=== PATIENT | male | born 2000 | race Caucasian/White ===

== ENCOUNTER 2022-01-01 14:23 | Inpatient (IN) ==
[2022-01-01] MEDS ORDERED: SODIUM CHLORIDE 0.9% 1000ML 1,000 ML IV ONE (14:47)
[2022-01-01] MEDS ORDERED: IBUPROFEN 200 MG TAB PO STA (14:47)
--- NOTE | 2022-01-01 14:53 | Emergency Department Note ---
History of Present Illness General Chief complaint: Fever Stated complaint: FEVER/NO ENERGY/BODY ACHES/CAN'T EAT Time Seen by Provider: 01/01/22 14:37 History of Present Illness This 21-year-old male presents today for evaluation of a multitude of cold symptoms. He states it started on Sunday. He has had no energy. He feels as though there is loss of appetite and some discomfort with swallowing. He thinks he had a fever at home. He denies any ear pain. There is some nasal congestion. No cough. He has had some chills and sweats. No vomiting or diarrhea. He does get some nausea when attempting to eat. No known ill contacts. He has had no treatment. He did take an at home COVID test on and Sunday. Both were negative. He states his vaccinations are up-to-date. Home Medications Medication Instructions Recorded Confirmed Type No Known Home Medications 01/01/22 01/01/22 History Allergies Allergy/AdvReac Type Severity Reaction Status Date / Time No Known Allergies Allergy Unverified 01/01/22 15:51 Past Med/Surg History Medical History No pertinent past medical history Surgical History H/O wisdom tooth extraction Hx of eye surgery Family History Mother Anemia Social History Smoking Status: Never smoker Hx Alcohol Use: Yes Alcohol type: beer Hx Substance Use: No Communication Ability: Effective Hearing Ability: Normal Enterprise Integration Developer Required: No Beliefs That Will Affect Care: None marital status: Single Current Living Situation: Alone Current Living Situation Comment: roommates current occupational status: student Other Information That Helps Us Care for You: No Feels Safe at Home: Yes Safety Concerns: Feels Safe At This Time Assistive Devices: None Review of Systems A total of 10 systems reviewed and were otherwise negative Physical Exam Vital Signs Vital Signs - 24 hr 01/01/22 14:26 01/01/22 14:40 01/01/22 16:23 Temperature 37.3 C Temperature Source Temporal Artery Scan Pulse Rate 100 H Pulse Rate [Apical] 85 83 Respiratory Rate 18 20 20 Respiratory Effort / Characteristics Non-Labored Non-Labored Spontaneous Non-Labored Spontaneous Respiratory Depth Normal Normal Normal Respiratory Pattern Regular Regular Blood Pressure 118/68 Blood Pressure [Right Arm] 135/86 136/67 Blood Pressure Mean 84 Blood Pressure Mean [Right Arm] 102 90 Blood Pressure Position [Right Arm] Sitting Sitting Pulse Oximetry 100 98 97 Oxygen Delivery Method Room Air Room Air Sepsis Recent Fever Within 48 Hours No Sepsis New/Unexplained Change in Mental Status No Sepsis Action Taken by Nursing No Action Required General: Well-developed, well-nourished, young white male, in no acute distress. Sitting on a bed. Alert and oriented. Conversive. Skin: Warm and dry with fair turgor. No rashes or lesions. No ecchymosis or erythema. The patient is not diaphoretic. No abrasions. Appears mildly pale. HEENT: Normocephalic atraumatic. Eyes PERRLA, EOMI. No conjunctiva or scleral injection. Ears TMs intact bilaterally with good light reflexes. No erythema or bulging. No hemotympanum. Canals are patent. Nares patent bilaterally without turbinate enlargement. Clear nasal drainage present bilaterally. No epistaxis. Oropharynx with erythema and exudate on the tonsils. Uvula midline, oral mucosa moist. No lesions present. Postnasal drip is visible. Lymphatics are palpated with right anterior chain enlargement but no tenderness. No posterior chain enlargement or tenderness. Heart: Heart tachycardic with regular rhythm. No MGR. Peripheral pulses are 2+. Lungs: Lungs are clear to auscultation. No crackles rhonchi or wheezing. Good air movement. The patient is able to take a deep breath. Abdomen: Abdomen was inspected, auscultated, and palpated. Bowel sounds present x 4. Soft, nontender to palpation. No hepato-splenomegaly. No masses noted. No rebound. Musculoskeletal: Gross motor function of the upper and lower extremities is intact and unremarkable. No nuchal rigidity. Neurologic: Gross sensation is intact across the upper and lower extremities by soft touch. Rectal: No external hemorrhoids visible. Soft yellow stool present in rectal vault. No internal hemorrhoids are noted. No internal masses. Good sphincter tone. Stool is guaiac negative. Course Administered Medications Acetaminophen (Acetaminophen 325 Mg Tab) 650 mg PO Q4H PRN PRN Reason: temp/pain Stop: 01/31/22 23:24 Last Admin: 01/02/22 07:57 Dose: 650 mg Documented By: Admin: 01/02/22 04:02 Dose: 650 mg Documented By: Admin: 01/01/22 23:27 Dose: 650 mg Documented By: DEANGELO Amoxicillin (Amoxicillin 500 Mg Cap) 500 mg PO TID ASHLEY Stop: 01/11/22 20:59 Last Admin: 01/03/22 14:14 Dose: 500 mg Documented By: ALISIA Co-signed By: DENNIS Admin: 01/03/22 08:50 Dose: 500 mg Documented By: Admin: 01/02/22 20:08 Dose: 500 mg Documented By: Admin: 01/02/22 13:01 Dose: 500 mg Documented By: Admin: 01/02/22 07:58 Dose: 500 mg Documented By: Admin: 01/01/22 22:04 Dose: 500 mg Documented By: DEANGELO Ascorbic Acid (Ascorbic Acid 500 Mg Tab) 1,000 mg PO QAM [facility] Stop: 02/01/22 13:29 Last Admin: 01/03/22 08:50 Dose: 1,000 mg Documented By: Admin: 01/02/22 15:01 Dose: 1,000 mg Documented By: OSVALDO Ferrous Sulfate (Ferrous Sulfate 325 Mg Tab) 325 mg PO QAM [facility] Stop: 02/01/22 13:29 Last Admin: 01/03/22 08:50 Dose: 325 mg Documented By: Admin: 01/02/22 15:01 Dose: 325 mg Documented By: OSVALDO Discontinued Medications Acetaminophen (Acetaminophen 325 Mg Tab) Confirm Administered Dose 650 mg .ROUTE .STK-MED ONE Stop: 01/01/22 23:28 Last Admin: 01/01/22 23:43 Dose: Not Given Documented By: DEANGELO Diphenhydramine HCl (Diphenhydramine Capsule 25 Mg Cap) 50 mg PO NOW ONE Stop: 01/02/22 02:10 Last Admin: 01/02/22 02:42 Dose: 50 mg Documented By: DEANGELO Sodium Chloride (Nss 1000ml) 1,000 mls @ 999 mls/hr IV .Q1H1M ONE Stop: 01/01/22 15:47 Last Infusion: 01/01/22 16:02 Dose: 0 mls/hr Documented By: Admin: 01/01/22 14:55 Dose: 999 mls/hr Documented By: ALLIE Pantoprazole Sodium 40 mg/ (Syringe) 10 mls @ 5 mls/min IV BID ASHLEY Stop: 01/31/22 20:59 Last Admin: 01/02/22 07:58 Dose: 5 mls/min Documented By: Admin: 01/01/22 20:27 Dose: 5 mls/min Documented By: DEANGELO Pantoprazole Sodium 40 mg/ (Syringe) 10 mls @ 5 mls/min IV NOW ONE Stop: 01/01/22 16:51 Last Admin: 01/01/22 18:23 Dose: 5 mls/min Documented By: STEPHANE Sodium Chloride (Nss) 250 mls @ 15 mls/hr IV .[id number] PRN PRN Reason: For Transfusion Stop: 01/02/22 12:10 Last Infusion: 01/02/22 07:59 Dose: 0 mls/hr Documented By: Admin: 01/02/22 07:59 Dose: 15 mls/hr Documented By: OSVALDO Ibuprofen (Ibuprofen 200 Mg Tab) 600 mg PO NOW STA Stop: 01/01/22 14:48 Last Admin: 01/01/22 14:55 Dose: 600 mg Documented By: ALLIE Ondansetron HCl (Ondansetron Inj 2 Mg/Ml 2 Ml Vial) Confirm Administered Dose 4 mg .ROUTE .STK-MED ONE Stop: 01/02/22 04:01 Last Admin: 01/02/22 05:38 Dose: Not Given Documented By: DEANGELO Ondansetron HCl (Ondansetron Inj 2 Mg/Ml 2 Ml Vial) 4 mg IV NOW STA Stop: 01/02/22 05:19 Last Admin: 01/02/22 04:05 Dose: 4 mg Documented By: DEANGELO Ondansetron HCl (Ondansetron Inj 2 Mg/Ml 2 Ml Vial) 4 mg IV NOW STA Stop: 01/02/22 16:40 Last Admin: 01/02/22 18:29 Dose: Not Given Documented By: OSVALDO Ondansetron HCl (Ondansetron Inj 2 Mg/Ml 2 Ml Vial) Confirm Administered Dose 4 mg .ROUTE .STK-MED ONE Stop: 01/02/22 16:32 Last Admin: 01/02/22 16:35 Dose: 4 mg Documented By: OSVALDO Medical Decision Making Differential Diagnosis Strep pharyngitis, COVID-19 infection, other viral infection, mononucleosis, pneumonia, GI bleed, anemia, leukemia, other cancer Medical Records Attestation: I reviewed the patient's medical records. Home Medications Current Medication List: was personally reviewed by me Laboratory Data CBC, Monospot, strep swab, and COVID nasal swab were obtained. Iron panel and CMP were also obtained. CBC showed WBC is low at 3.15. RBC is low at 4.07. H&H are low at 5.7 and 22.2. MCV also low at 54.5. Hypochromasia, microcytosis, and anisocytosis are present. [facility] is negative. Strep is positive. Chemistry panel shows sodium 133, chloride 92, anion gap of 16. BUN and creatinine are normal. Iron is low at 10 Transferrin percent is 3. Unsaturated IBC is high at 367. Total bilirubin is 1.4. Due to his low H&H, type and cross were obtained. Result diagrams: 01/03/22 06:20 01/03/22 06:20 Lab Results 01/01/22 01/01/22 01/01/22 Range/Units 15:02 15:02 15:02 WBC 3.15 L (4.8-10.8) K/ul RBC 4.07 L (4.63-6.08) M/uL Hgb 5.7 L* (14.0-18.0) g/dl Hct 22.2 L (40.1-51.0) % MCV 54.5 L (80.0-100.0) fL MCH 14.0 L (25.0-34.0) pg MCHC 25.7 L (32.0-36.0) g/dL RDW Std Deviation 40.3 (36.4-46.3) fL RDW Coeff of Mily 21.9 H (11.5-14.5) % Plt Count 155 (130-400) K/uL Immature Gran % (Auto) 0.3 % Neut % (Auto) 55.6 % Lymph % (Auto) 29.2 % [facility] % (Auto) 14.9 % Eos % (Auto) 0.0 % Baso % (Auto) 0.0 % Neut # (Auto) 1.75 (1.4-6.5) K/uL Lymph # (Auto) 0.92 L (1.2-3.4) K/uL [facility] # (Auto) 0.47 (0.24-0.82) K/uL Eos # (Auto) 0.00 (0-0.50) K/uL Baso # (Auto) 0.00 (0-0.2) K/uL Immature Gran # (Auto) 0.01 (0.00-0.02) K/uL Polychromasia Hypochromasia Present Anisocytosis Present Microcytosis Present Tear Drop Cells 1+ Ovalocytes Schistocytes 1+ Peripher Smr Path Cons Sodium (136-145) mmol/L Potassium (3.5-5.1) mmol/L Chloride (98-107) mmol/L Carbon Dioxide (21-32) mmol/L Anion Gap (3-11) BUN (6-23) mg/dl Creatinine (0.6-1.4) mg/dl Est Cr Clr Drug Dosing ml/min Est GFR ( Amer) ml/min Est GFR (Non-Af Amer) ml/min BUN/Creatinine Ratio (10-20) Glucose (70-99(Fasting)) mg/dl Calcium (8.5-10.1) mg/dl Iron (35-175) mcg/dl TIBC (250-450) mcg/dl Unsaturated IBC (155-355) mcg/dl Transferrin % Sat (20-50) % Ferritin (8-388) ng/ml Total Bilirubin (0.2-1.0) mg/dl Direct Bilirubin (0-0.2) mg/dl AST (13-39) U/L ALT (7-52) U/L Alkaline Phosphatase (34-104) U/L Lactate Dehydrogenase (86-244) U/L Total Protein (6.0-8.3) gm/dl Albumin (3.4-5.0) gm/dl Globulin (2.5-4.0) gm/dl Albumin/Globulin Ratio (0.9-2) Monoscreen Negative (Negative) Group A Strep (PCR) DETECTED A (NotDetected) Blood Type Blood Type Recheck Antibody Screen Direct Antiglob Test (Negative) MADIHA (IgG-AHG) (Negative) MADIHA, Polyspecific (Negative) MADIHA C3b, C3d 5 Min (Negative) Crossmatch 0901/01/22 01/01/22 Range/Units 15:02 15:02 15:02 WBC (4.8-10.8) K/ul RBC (4.63-6.08) M/uL Hgb (14.0-18.0) g/dl Hct (40.1-51.0) % MCV (80.0-100.0) fL MCH (25.0-34.0) pg MCHC (32.0-36.0) g/dL RDW Std Deviation (36.4-46.3) fL RDW Coeff of Mily (11.5-14.5) % Plt Count (130-400) K/uL Immature Gran % (Auto) % Neut % (Auto) % Lymph % (Auto) % [facility] % (Auto) % Eos % (Auto) % Baso % (Auto) % Neut # (Auto) (1.4-6.5) K/uL Lymph # (Auto) (1.2-3.4) K/uL [facility] # (Auto) (0.24-0.82) K/uL Eos # (Auto) (0-0.50) K/uL Baso # (Auto) (0-0.2) K/uL Immature Gran # (Auto) (0.00-0.02) K/uL Polychromasia Hypochromasia Anisocytosis Microcytosis Tear Drop Cells Ovalocytes Schistocytes Peripher Smr Path Cons Sodium 133 L (136-145) mmol/L Potassium 3.6 (3.5-5.1) mmol/L Chloride 92 L (98-107) mmol/L Carbon Dioxide 25 (21-32) mmol/L Anion Gap 16 H (3-11) BUN 13 (6-23) mg/dl Creatinine 0.75 (0.6-1.4) mg/dl Est Cr Clr Drug Dosing 168.4 ml/min Est GFR ( Amer) > 150.0 ml/min Est GFR (Non-Af Amer) 131.1 ml/min BUN/Creatinine Ratio 17.3 (10-20) Glucose 100 H (70-99(Fasting)) mg/dl Calcium 8.7 (8.5-10.1) mg/dl Iron 10 L Cancelled (35-175) mcg/dl TIBC 377 Cancelled (250-450) mcg/dl Unsaturated IBC 367 H Cancelled (155-355) mcg/dl Transferrin % Sat 3 L Cancelled (20-50) % Ferritin 8.2 (8-388) ng/ml Total Bilirubin 1.4 H (0.2-1.0) mg/dl Direct Bilirubin (0-0.2) mg/dl AST 22 (13-39) U/L ALT 12 (7-52) U/L Alkaline Phosphatase 38 (34-104) U/L Lactate Dehydrogenase (86-244) U/L Total Protein 7.5 (6.0-8.3) gm/dl Albumin 4.4 (3.4-5.0) gm/dl Globulin 3.1 (2.5-4.0) gm/dl Albumin/Globulin Ratio 1.4 (0.9-2) Monoscreen (Negative) Group A Strep (PCR) (NotDetected) Blood Type Blood Type Recheck Antibody Screen Direct Antiglob Test (Negative) MADIHA (IgG-AHG) (Negative) MADIHA, Polyspecific (Negative) MADIHA C3b, C3d 5 Min (Negative) Crossmatch 01/01/22 01/01/22 01/01/22 Range/Units 15:40 15:57 16:30 WBC (4.8-10.8) K/ul RBC (4.63-6.08) M/uL Hgb 4.9 L* (14.0-18.0) g/dl Hct 19.3 L* (40.1-51.0) % MCV (80.0-100.0) fL MCH (25.0-34.0) pg MCHC (32.0-36.0) g/dL RDW Std Deviation (36.4-46.3) fL RDW Coeff of Imly (11.5-14.5) % Plt Count (130-400) K/uL Immature Gran % (Auto) % Neut % (Auto) % Lymph % (Auto) % [facility] % (Auto) % Eos % (Auto) % Baso % (Auto) % Neut # (Auto) (1.4-6.5) K/uL Lymph # (Auto) (1.2-3.4) K/uL [facility] # (Auto) (0.24-0.82) K/uL Eos # (Auto) (0-0.50) K/uL Baso # (Auto) (0-0.2) K/uL Immature Gran # (Auto) (0.00-0.02) K/uL Polychromasia Hypochromasia Anisocytosis Microcytosis Tear Drop Cells Ovalocytes Schistocytes Peripher Smr Path Cons Sodium (136-145) mmol/L Potassium (3.5-5.1) mmol/L Chloride (98-107) mmol/L Carbon Dioxide (21-32) mmol/L Anion Gap (3-11) BUN (6-23) mg/dl Creatinine (0.6-1.4) mg/dl Est Cr Clr Drug Dosing ml/min Est GFR ( Amer) ml/min Est GFR (Non-Af Amer) ml/min BUN/Creatinine Ratio (10-20) Glucose (70-99(Fasting)) mg/dl Calcium (8.5-10.1) mg/dl Iron (35-175) mcg/dl TIBC (250-450) mcg/dl Unsaturated IBC (155-355) mcg/dl Transferrin % Sat (20-50) % Ferritin (8-388) ng/ml Total Bilirubin (0.2-1.0) mg/dl Direct Bilirubin (0-0.2) mg/dl AST (13-39) U/L ALT (7-52) U/L Alkaline Phosphatase (34-104) U/L Lactate Dehydrogenase (86-244) U/L Total Protein (6.0-8.3) gm/dl Albumin (3.4-5.0) gm/dl Globulin (2.5-4.0) gm/dl Albumin/Globulin Ratio (0.9-2) Monoscreen (Negative) Group A Strep (PCR) (NotDetected) Blood Type A Negative Blood Type Recheck A Negative Antibody Screen NEGATIVE Direct Antiglob Test Negative (Negative) MADIHA (IgG-AHG) Neg (Negative) MADIHA, Polyspecific Neg (Negative) MADIHA C3b, C3d 5 Min Neg (Negative) Crossmatch See Detail 01/01/22 01/01/22 01/01/22 Range/Units 16:30 16:30 16:30 WBC 3.01 L (4.8-10.8) K/ul RBC 3.77 L (4.63-6.08) M/uL Hgb 5.3 L* (14.0-18.0) g/dl Hct 20.6 L* (40.1-51.0) % MCV 54.6 L (80.0-100.0) fL MCH 14.1 L (25.0-34.0) pg MCHC 25.7 L (32.0-36.0) g/dL RDW Std Deviation 40.6 (36.4-46.3) fL RDW Coeff of Mily 21.8 H (11.5-14.5) % Plt Count 144 (130-400) K/uL Immature Gran % (Auto) 0.3 % Neut % (Auto) 53.5 % Lymph % (Auto) 29.6 % [facility] % (Auto) 16.3 % Eos % (Auto) 0.0 % Baso % (Auto) 0.3 % Neut # (Auto) 1.61 (1.4-6.5) K/uL Lymph # (Auto) 0.89 L (1.2-3.4) K/uL [facility] # (Auto) 0.49 (0.24-0.82) K/uL Eos # (Auto) 0.00 (0-0.50) K/uL Baso # (Auto) 0.01 (0-0.2) K/uL Immature Gran # (Auto) 0.01 (0.00-0.02) K/uL Polychromasia 1+ Hypochromasia Present Anisocytosis Present Microcytosis Present Tear Drop Cells Ovalocytes 1+ Schistocytes 1+ Peripher Smr Path Cons Sodium (136-145) mmol/L Potassium (3.5-5.1) mmol/L Chloride (98-107) mmol/L Carbon Dioxide (21-32) mmol/L Anion Gap (3-11) BUN (6-23) mg/dl Creatinine (0.6-1.4) mg/dl Est Cr Clr Drug Dosing ml/min Est GFR ( Amer) ml/min Est GFR (Non-Af Amer) ml/min BUN/Creatinine Ratio (10-20) Glucose (70-99(Fasting)) mg/dl Calcium (8.5-10.1) mg/dl Iron (35-175) mcg/dl TIBC (250-450) mcg/dl Unsaturated IBC (155-355) mcg/dl Transferrin % Sat (20-50) % Ferritin (8-388) ng/ml Total Bilirubin (0.2-1.0) mg/dl Direct Bilirubin 0.4 H (0-0.2) mg/dl AST (13-39) U/L ALT (7-52) U/L Alkaline Phosphatase (34-104) U/L Lactate Dehydrogenase 87 (86-244) U/L Total Protein (6.0-8.3) gm/dl Albumin (3.4-5.0) gm/dl Globulin (2.5-4.0) gm/dl Albumin/Globulin Ratio (0.9-2) Monoscreen (Negative) Group A Strep (PCR) (NotDetected) Blood Type Blood Type Recheck Antibody Screen Direct Antiglob Test (Negative) MADIHA (IgG-AHG) (Negative) MADIHA, Polyspecific (Negative) MADIHA C3b, C3d 5 Min (Negative) Crossmatch Imaging Data Radiologist's Impression: Abdomen/Pelvis CT 01/01/22 16:30 CT SCAN OF THE CHEST, ABDOMEN, AND PELVIS WITHOUT IV CONTRAST CLINICAL HISTORY: Anemia. Lethargy. COMPARISON STUDY: No priors. TECHNIQUE: Unenhanced CT scan of the chest, abdomen, and pelvis was performed from the thoracic inlet to the proximal femora. Images are reviewed in the axial, sagittal, and coronal planes. IV contrast was not administered as per the referring clinician. Note that the examination was performed in significantly suboptimal fashion without oral and IV contrast. A dose lowering technique was utilized adhering to the principles of ALARA. CT DOSE: 528.34 mGy.cm FINDINGS: CHEST: Thyroid: Imaged portions of the thyroid gland are normal in size and attenuation. Thoracic aorta: The thoracic aorta is normal in caliber and demonstrates standard 3-vessel arch anatomy. Heart: The heart is normal in size and without pericardial effusion. There is diminished attenuation of the cardiac blood pool as compared to the myocardium suggesting anemia. Lungs and pleural spaces: There is no airspace consolidation or pleural effusion. The trachea and central airways are clear. Subcentimeter foci of pleural-based nodularity along the right major fissure are of doubtful significance. Mediastinum: There is no mediastinal lymphadenopathy. Lorna: Not well assessed without IV contrast. Axillae: There is no axillary lymphadenopathy. Bony thorax: No lytic or blastic lesions are identified. ABDOMEN AND PELVIS: Liver: The unenhanced liver is normal in size, contour, and attenuation. There is no intrahepatic biliary ductal dilatation. Gallbladder: Unremarkable. Spleen: The spleen is enlarged, measuring 18.1 cm in craniocaudal length. Pancreas: Unremarkable. Adrenal glands: Unremarkable. Kidneys: The unenhanced kidneys are normal in size and without hydronephrosis. No renal calculi are identified. There is no evidence of contour deforming mass lesion. Abdominal vasculature: The abdominal aorta is normal in course and caliber. Bowel: There is no bowel obstruction. The appendix is normal as visualized. Peritoneum: There is no intraperitoneal free air or abdominal ascites. There is a tiny fat-containing umbilical hernia. Lymphadenopathy: There are numerous prominent mesenteric lymph nodes. No retroperitoneal, iliac chain, pelvic sidewall, or abnormal adenopathy is identified. Pelvic viscera: The bladder, prostate, and seminal vesicles are normal as visualized. Skeletal structures: No lytic or blastic lesions are seen. IMPRESSION: 1. No active disease in the chest. 2. There is evidence of anemia. 3. Splenomegaly. 4. There are numerous prominent mesenteric lymph nodes. These of indeterminate etiology and significance, and may be reactive. 5. Additional findings as above. ACT 112: Negative or not required by law. Electronically signed by: Roderick Aguila M.D. 01/01/2022 5:[address] 01/01/22 16:30 CT SCAN OF THE CHEST, ABDOMEN, AND PELVIS WITHOUT IV CONTRAST CLINICAL HISTORY: Anemia. Lethargy. COMPARISON STUDY: No priors. TECHNIQUE: Unenhanced CT scan of the chest, abdomen, and pelvis was performed from the thoracic inlet to the proximal femora. Images are reviewed in the axial, sagittal, and coronal planes. IV contrast was not administered as per the referring clinician. Note that the examination was performed in significantly suboptimal fashion without oral and IV contrast. A dose lowering technique was utilized adhering to the principles of ALARA. CT DOSE: 528.34 mGy.cm FINDINGS: CHEST: Thyroid: Imaged portions of the thyroid gland are normal in size and attenuation. Thoracic aorta: The thoracic aorta is normal in caliber and demonstrates standard 3-vessel arch anatomy. Heart: The heart is normal in size and without pericardial effusion. There is d iminished attenuation of the cardiac blood pool as compared to the myocardium suggesting anemia. Lungs and pleural spaces: There is no airspace consolidation or pleural effus ion. The trachea and central airways are clear. Subcentimeter foci of pleural- based nodularity along the right major fissure are of doubtful significance. Mediastinum: There is no mediastinal lymphadenopathy. Lorna: Not well assessed without IV contrast. Axillae: There is no axillary lymphadenopathy. Bony thorax: No lytic or blastic lesions are identified. ABDOMEN AND PELVIS: Liver: The unenhanced liver is normal in size, contour, and attenuation. There is no intrahepatic biliary ductal dilatation. Gallbladder: Unremarkable. Spleen: The spleen is enlarged, measuring 18.1 cm in craniocaudal length. Pancreas: Unremarkable. Adrenal glands: Unremarkable. Kidneys: The unenhanced kidneys are normal in size and without hydronephrosis. No renal calculi are identified. There is no evidence of contour deforming mass lesion. Abdominal vasculature: The abdominal aorta is normal in course and caliber. Bowel: There is no bowel obstruction. The appendix is normal as visualized. Peritoneum: There is no intraperitoneal free air or abdominal ascites. There is a tiny fat-containing umbilical hernia. Lymphadenopathy: There are numerous prominent mesenteric lymph nodes. No retroperitoneal, iliac chain, pelvic sidewall, or abnormal adenopathy is identified. Pelvic viscera: The bladder, prostate, and seminal vesicles are normal as visualized. Skeletal structures: No lytic or blastic lesions are seen. IMPRESSION: 1. No active disease in the chest. 2. There is evidence of anemia. 3. Splenomegaly. 4. There are numerous prominent mesenteric lymph nodes. These of indeterminate etiology and significance, and may be reactive. 5. Additional findings as above. ACT 112: Negative or not required by law. Electronically signed by: Roderick Aguila M.D. 01/01/2022 5:05 PM Prescription Drug Monitoring [place] Drug Monitoring Program reviewed and no issues identified Blood Pressure Blood Pressure Findings: Normal blood pressure MDM Narrative Patient was evaluated in room C4. Conservative care measures were discussed. Patient was placed on a blacktop spreader throughout his stay. IV was established. Labs were obtained. He was hydrated with 1 L normal sterile saline IV bolus. [facility] is negative. COVID test is negative. Strep test is positive. Patient is anemic with a low H&H of 5.7 and 22.2. He will require transfusion. 2 units were ordered. Consent was obtained by Dr. Lexis. Recheck of his H&H was performed to rule out lab error. It remained low at 5.2 and 20. He was started on amoxicillin 500 mg 3 times daily. Because of his requirement for transfusion, and his lack of source, hospitalist service was consulted for admission. Please see that dictation for management. Patient remained stable while in the ED. he did relate that his mother had some sort of anemia history, but he is unsure what type. Attending Attestation: I Fidel Pires MD independently saw and evaluated this patient and agree with history and physical is otherwise documented by the physician assistant professor nurse education. See their note for full details. Patient noted to have strep throat with fat igue, however labs (rechecked) confirm severe microcytic anemia. Hemoccult negative. Low suspicion for GI bleed given this. Consented patient for blood transfusion given the anemia discussing risk and benefits. Will admit for further work up after 2u pRBC ordered as well as Amoxicillin for strep throat. Critical Care I have personally spent 33 minutes of critical care time in the direct management of this patient. This includes bedside care, interpretation of diagn ostic studies, and testing, discussion with consultants, patient, and family members, and other required patient management activities. These 33 minutes is in excess of all separately billable procedures. Impression & Plan Anemia, Strep sore throat, Iron deficiency, Microcytic anemia Patient will be transfused 2 units packed RBCs. He will need further work-up. Patient will be admitted to the hospitalist service for further management. Please see that dictation for final details. Care plan was discussed with Dr. Dee Dee garcia. Discharge Plan Visit Data Chief Complaint: Fever Stated Complaint: FEVER/NO ENERGY/BODY ACHES/CAN'T EAT ED Provider: Fidel Pires ED Midlevel Provider: Jack William Discharge Problem: Anemia, Strep sore throat, Iron deficiency, Microcytic anemia Patient Disposition: Admitted As Inpatient Discharge Instructions Interventions: ED Discharge Assessment Last Done: 01/01/22 18:27
[2022-01-01 15:18] LABS: Hematocrit (blood only) 22.2 % (40.1-51.0); Hemoglobin 5.7 g/dl (14.0-18.0); Mean Corpuscular Hgb Conc 25.7 g/dL (32.0-36.0); Mean Corpuscular Volume 54.5 fL (80.0-100.0); Platelet Count 155 K/uL (130-400); RDW Coefficient of Variation 21.9 % (11.5-14.5); RDW Standard Deviation 40.3 fL (36.4-46.3); Red Blood Count 4.07 M/uL (4.63-6.08); White Blood Count 3.15 K/ul (4.8-10.8)
[2022-01-01 15:33] LABS: Anisocytosis Present; Hypochromasia Present; Immature Granulocytes # (auto) 0.01 K/uL (0.00-0.02); Immature Granulocytes % (auto) 0.3 %; Lymphocytes # (auto) 0.92 K/uL (1.2-3.4); Lymphocytes % (auto) 29.2 %; Microcytosis Present; Monocytes # (auto) 0.47 K/uL (0.24-0.82); Monocytes % (auto) 14.9 %; Neutrophils # (auto) 1.75 K/uL (1.4-6.5); Neutrophils % (auto) 55.6 %; Schistocytes 1+; Tear Drop Cells 1+
[2022-01-01] MEDS ORDERED: SODIUM CHLORIDE 0.9% 250 ML IV PRN (15:36)
[2022-01-01 16:00] LABS: Alanine Aminotransferase 12 U/L (7-52); Albumin Globulin Ratio 1.4 (0.9-2); Albumin Level 4.4 gm/dl (3.4-5.0); Alkaline Phosphatase 38 U/L (34-104); Anion Gap 16 (3-11); Aspartate Aminotransferase 22 U/L (13-39); BUN Creatinine Ratio 17.3 (10-20); Bilirubin,Total 1.4 mg/dl (0.2-1.0); Blood Urea Nitrogen 13 mg/dl (6-23); Calcium 8.7 mg/dl (8.5-10.1); Carbon Dioxide 25 mmol/L (21-32); Chloride 92 mmol/L (98-107); Creatinine Clr Calc Pharmacy 168.4 ml/min; Est GFR (African American) > 150.0 ml/min; Est GFR (Non-African American) 131.1 ml/min; Globulin 3.1 gm/dl (2.5-4.0); Glucose 100 mg/dl (70-99(Fasting)); Iron 10 mcg/dl (35-175); Potassium 3.6 mmol/L (3.5-5.1); Sodium 133 mmol/L (136-145); Total Iron Binding Cap Calc 377 mcg/dl (250-450); Total Protein 7.5 gm/dl (6.0-8.3); Transferrin (FE) Percent Satur 3 % (20-50); Unsaturated Iron Binding Cap 367 mcg/dl (155-355)
[2022-01-01 16:17] LABS: Hematocrit (blood only) 19.3 % (40.1-51.0); Hemoglobin 4.9 g/dl (14.0-18.0)
--- NOTE | 2022-01-01 16:41 | History & Physical Report ---
Date of Service January 01, 2022 History of Present Illness Chief Complaint: Ramon is a 21 year old male with no significant PMH who presented to the [facility] ED on Primary Care Provider: NO PCP Allergies Allergy/AdvReac Type Severity Reaction Status Date / Time No Known Allergies Allergy Unverified 01/01/22 15:51 Home Medications Medication Instructions Recorded Confirmed Type No Known Home Medications 01/01/22 01/01/22 History Past Med/Surg History Medical History (Updated 01/01/22 @ 14:50 by Jack William PA-C) No pertinent past medical history Surgical History (Updated 01/01/22 @ 16:07 by Jack William PA-C) H/O wisdom tooth extraction Hx of eye surgery Family History (Updated 01/01/22 @ 16:08 by Jack William PA-C) Mother Anemia Social History (Updated 01/01/22 @ 14:50 by Jack William PA-C) Smoking Status: Never smoker Hearing Ability: Normal marital status: Single Current Living Situation: Other Current Living Situation Comment: roommates current occupational status: student Feels Safe at Home: Yes Results & Data Results & Data ([facility]) Vital Signs (Past 12 Hours) Vital Signs Temp Pulse Pulse Resp BP BP Pulse Ox 01/01/22 14:40 85 20 135/86 98 01/01/22 14:26 37.3 C 100 H 18 118/68 100 O2 Del Method 01/01/22 14:40 Room Air 01/01/22 14:26 PG Care Time/CCT Total # of Minutes Spent Total Time Spent with Patient: Total time spent is greater than 50% in coordination of care (as documented) at patient's floor/unit and/or counseling patient: Coding
[2022-01-01] MEDS ORDERED: ICU PROTOCOL FOR HYPERGLYCEMIA PRN (16:46)
[2022-01-01] MEDS ORDERED: PANTOprazole 40 MG in SYRINGE 0 ML IV ONE (16:50)
--- NOTE | 2022-01-01 16:55 | History & Physical Report ---
Date of Service January 01, 2022 Assessment & Plan (1) Anemia: Plan: acute blood loss anemia Patient will be admitted to the ICU due to very low hemoglobin Ordered ct scan of chest and abd/pelvis to rule out any internal bleeding. ordered ldh direct bili, parvovirus, iron studies suggest iron def. anemia. will transfuse 2 units. stool guiac is negative. Patient denies any dark stools or blood in stools. will recheck blood work in AM. given severe anemia (hemoglobin below 5) this is a life threatening emergency admit to ICU. (2) Strep sore throat: Plan: will treat with amoxicillin. will monitor History of Present Illness Chief Complaint: fatigue Primary Care Provider: NO PCP This is a pleasant 21 yo male with no significant past medical history. Patient had generalized malaise, weakness. patient has cold like symtpoms sore throat. This did not improve. Patient had 2 covid test which were negative. Allergies Allergy/AdvReac Type Severity Reaction Status Date / Time No Known Allergies Allergy Unverified 01/01/22 15:51 Home Medications Medication Instructions Recorded Confirmed Type No Known Home Medications 01/01/22 01/01/22 History Past Med/Surg History Medical History No pertinent past medical history Surgical History H/O wisdom tooth extraction Hx of eye surgery Family History Mother Anemia Social History Smoking Status: Never smoker Hx Alcohol Use: Yes Alcohol type: beer Hx Substance Use: No Communication Ability: Effective Hearing Ability: Normal Machine Feeder Required: No Beliefs That Will Affect Care: None marital status: Single Current Living Situation: Alone Current Living Situation Comment: roommates current occupational status: student Other Information That Helps Us Care for You: No Feels Safe at Home: Yes Safety Concerns: Feels Safe At This Time Assistive Devices: None Review of Systems Constitutional: + fever, + chills, + body aches and + fatigue Eyes: no blind spots Ear, Nose, Mouth, Throat: no ear pain and no tinnitus Respiratory: no cough Gastrointestinal: no abdominal pain Genitourinary: no dysuria Musculoskeletal: no back pain Integumentary: no acne Neurologic: no gait abnormality Psychiatric: no behavioral changes Endocrine: no fatigue Hematologic / Lymphatic: no easy bleeding Allergy / Immunological: no GI upset with certain foods Physical Exam Constitutional: WD/WN, vitals as above Eyes: PERRL, conjunctivae normal, anicteric sclerae ENMT: external ear and nose normal, oropharynx normal Neck: trachea midline, no thyromegaly Respiratory: normal respiratory effort, lungs clear to auscultation Cardiovascular: RRR, no murmur, no edema Gastrointestinal (Abdomen): normal bowel sounds, soft, nontender, no hepatosplenomegaly Musculoskeletal: no cyanosis or clubbing, extremities motor strength 5/5 Skin: no rashes, warm and dry Neurologic: PERRL, EOMI, accommodation nl, no face palsy, no dysarthria Psychiatric: A+Ox3, euthymic affect Lymphatic: no cervical or axillary lymphadenopathy Results & Data Results & Data ([facility]) Vital Signs (Past 12 Hours) Vital Signs Temp Pulse Pulse Resp BP BP Pulse Ox 01/01/22 14:40 85 20 135/86 98 01/01/22 14:26 37.3 C 100 H 18 118/68 100 O2 Del Method 01/01/22 14:40 Room Air 01/01/22 14:26 Critical Care Time Critical Care Time: Yes (60) Total Critical Care Time: 60 PG Care Time/CCT Total # of Minutes Spent Total Time Spent with Patient: Total time spent is greater than 50% in coordination of care (as documented) at patient's floor/unit and/or counseling patient: Critical Care Time: Yes (60) Total Critical Care Time: 60 Coding Level of Care Code 26745 Initial Inpt Care Lvl 3 (25 - SIGNIFICANT, SEPARATELY IDENTIFIABLE ) Diagnoses Anemia D64.9 Strep sore throat J02.0 Additional Codes Critical Care Time - Critical Care Time: Yes ([id number])
[2022-01-01 17:01] LABS: Hematocrit (blood only) 20.6 % (40.1-51.0); Hemoglobin 5.3 g/dl (14.0-18.0); Mean Corpuscular Hemoglobin 14.1 pg (25.0-34.0); Mean Corpuscular Hgb Conc 25.7 g/dL (32.0-36.0); Mean Corpuscular Volume 54.6 fL (80.0-100.0); Platelet Count 144 K/uL (130-400); RDW Coefficient of Variation 21.8 % (11.5-14.5); RDW Standard Deviation 40.6 fL (36.4-46.3); Red Blood Count 3.77 M/uL (4.63-6.08); White Blood Count 3.01 K/ul (4.8-10.8)
--- NOTE | 2022-01-01 17:08 | CT Scan Report ---
CT SCAN OF THE CHEST, ABDOMEN, AND PELVIS WITHOUT IV CONTRAST CLINICAL HISTORY: Anemia. Lethargy. COMPARISON STUDY: No priors. TECHNIQUE: Unenhanced CT scan of the chest, abdomen, and pelvis was performed from the thoracic inlet to the proximal femora. Images are reviewed in the axial, sagittal, and coronal planes. IV contrast was not administered as per the referring clinician. Note that the examination was performed in sign ificantly suboptimal fashion without oral and IV contrast. A dose lowering technique was utilized adh ering to the principles of ALARA. CT DOSE: 528.34 mGy.cm FINDINGS: CHEST: Thyroid: Imaged portions of the thyroid gland are normal in size and attenuation. Thoracic aorta: The thoracic aorta is normal in caliber and demonstrates standard 3-vessel arch anato my. Heart: The heart is normal in size and without pericardial effusion. There is diminished attenuation of the cardiac blood pool as compared to the myocardium suggesting anemia. Lungs and pleural spaces: There is no airspace consolidation or pleural effusion. The trachea and helena tral airways are clear. Subcentimeter foci of pleural-based nodularity along the right major fissure are of doubtful significance. Mediastinum: There is no mediastinal lymphadenopathy. Lorna: Not well assessed without IV contrast. Axillae: There is no axillary lymphadenopathy. Bony thorax: No lytic or blastic lesions are identified. ABDOMEN AND PELVIS: Liver: The unenhanced liver is normal in size, contour, and attenuation. There is no intrahepatic hitesh iary ductal dilatation. Gallbladder: Unremarkable. Spleen: The spleen is enlarged, measuring 18.1 cm in craniocaudal length. Pancreas: Unremarkable. Adrenal glands: Unremarkable. Kidneys: The unenhanced kidneys are normal in size and without hydronephrosis. No renal calculi are i dentified. There is no evidence of contour deforming mass lesion. Abdominal vasculature: The abdominal aorta is normal in course and caliber. Bowel: There is no bowel obstruction. The appendix is normal as visualized. Peritoneum: There is no intraperitoneal free air or abdominal ascites. There is a tiny fat-containing umbilical hernia. Lymphadenopathy: There are numerous prominent mesenteric lymph nodes. No retroperitoneal, iliac chain , pelvic sidewall, or abnormal adenopathy is identified. Pelvic viscera: The bladder, prostate, and seminal vesicles are normal as visualized. Skeletal structures: No lytic or blastic lesions are seen. IMPRESSION: 1. No active disease in the chest. 2. There is evidence of anemia. 3. Splenomegaly. 4. There are numerous prominent mesenteric lymph nodes. These of indeterminate etiology and significa nce, and may be reactive. 5. Additional findings as above. ACT 112: Negative or not required by law. Electronically signed by: Roderick Aguila M.D. 01/01/2022 5:05 PM
[2022-01-01 17:11] LABS: Anisocytosis Present; Basophils # (auto) 0.01 K/uL (0-0.2); Basophils % (auto) 0.3 %; Hypochromasia Present; Immature Granulocytes # (auto) 0.01 K/uL (0.00-0.02); Immature Granulocytes % (auto) 0.3 %; Lymphocytes # (auto) 0.89 K/uL (1.2-3.4); Lymphocytes % (auto) 29.6 %; Microcytosis Present; Monocytes # (auto) 0.49 K/uL (0.24-0.82); Monocytes % (auto) 16.3 %; Neutrophils # (auto) 1.61 K/uL (1.4-6.5); Neutrophils % (auto) 53.5 %; Ovalocytes 1+; Polychromasia 1+; Schistocytes 1+
[2022-01-01] MEDS: PANTOprazole 40 MG in SYRINGE 0 ML IV SCH (20:27)
[2022-01-01] MEDS: AMOXICILLIN 500 MG CAP PO SCH (22:04)
[2022-01-01] MEDS: ACETAMINOPHEN 325 MG TAB PO PRN (23:27)
[2022-01-01] MEDS ORDERED: ACETAMINOPHEN 325 MG TAB ONE (23:27)
[2022-01-02 02:01] LABS: Hematocrit (blood only) 22.8 % (40.1-51.0); Hemoglobin 6.3 g/dl (14.0-18.0); Mean Corpuscular Hemoglobin 16.1 pg (25.0-34.0); Mean Corpuscular Hgb Conc 27.6 g/dL (32.0-36.0); Mean Corpuscular Volume 58.3 fL (80.0-100.0); Nucleated RBC # (auto) 0.02 K/uL (0-0); Nucleated RBC % (auto) 0.3 %; Platelet Count 139 K/uL (130-400); RDW Coefficient of Variation 26.5 % (11.5-14.5); RDW Standard Deviation 51.8 fL (36.4-46.3); Red Blood Count 3.91 M/uL (4.63-6.08)
[2022-01-02] MEDS ORDERED: diphenhydrAMINE Capsule 25 MG CAP PO ONE (02:09)
[2022-01-02] MEDS ORDERED: SODIUM CHLORIDE 0.9% 250 ML IV PRN (02:10)
--- NOTE | 2022-01-02 02:13 | Critical Care Consultation ---
Date of Consultation January 02, 2022 Assessment & Plan (1) Microcytic anemia: Impression: Neuro - [facility] ICU: Negative Cardiac - No history of cardiac disease. Currently hemodynamically stable. Continuous monitoring on telemetry Respiratory - Lungs clear to auscultation. No history of pulmonary disease. Denies smoking. Continuous monitoring pulse ox GI - Regular diet RENAL/LYTES - Creatinine within normal limits, routine BMPs and replete electrolytes as indicated - Strict I's and O's ENDO - No history of diabetes or thyroid disease, ICU hyperglycemic protocol HEME - Microcytic anemiauncertain of exact etiology at this time but lab work seems to be in favor of iron deficiency anemia. Patient does report a regular diet without restrictions -Patient does report family history of anemia on his mother side -CT chest and abdomen without evidence of bleeding. Did note splenomegaly on CT abdomen and pelvis. NM GI bleeding pending -Elevated direct bili of 1.4 -Peripheral smear pending, ESR pending, urine blood pending, coags and fibrinogen pending -LDH 87, iron 10, TIBC 377, unsaturated IBC 367, transferrin 3, ferritin 8.2 -Initial hemoglobin 5.7, 6.3 after transfusion. Trend H&H and transfuse as necessary -Of note, patient did have blood transfusion reaction and will need premedication prior to further transfusions Blood transfusion reaction Fever of 39.6 on second unit of RBCs, no other symptoms and now afebrile. Transfusion stopped prior to completion. Tr ansfusion reaction labs pending. Patient was given acetaminophen. Will pretreat with Tylenol and diphenhydramine prior to further transfusions ID - COVID-19 negative. EBV and parvovirus pending Strep positive. Continue amoxicillin LINES/IV ACCESS - Peripheral IVs DVT PROPHYLAXIS - SCDs Thank you for allowing us to participate in the care of this patient. Please refer to my attending physician's documentation for any further recommendations. (2) Blood transfusion reaction: (3) Iron deficiency: (4) Splenomegaly: (5) Strep sore throat: History of Present Illness Attending Physician: Sonny Carlin History of Present Illness Patient is a pleasant 21-year-old male without any significant past medical history who presented to the emergency department earlier this evening with complaints of malaise and weakness that started on Sunday. Patient did r eport having a mild cough and sore throat as well. He was noted to have hemoglobin of 5.7. COVID-19 negative but positive for strep. He underwent CT chest abdomen and pelvis. He was noted to have splenomegaly on CT abdomen and pelvis with otherwise normal study. [place] negative. CBC with differential shows microcytic anemia. Anemic work-up shows low iron and transferrin levels. LDH within normal limits. Peripheral smear pending. Patient was undergoing transfusion with 2 units RBCs. On second unit patient developed fever of 39.6 and transfusion was stopped. He was then given acetami nophen and fever did resolved and he had no other symptoms. On exam, patient is alert and oriented and without distress. He is hemodynamically stable and comfortable on room air. He currently reports weakness and slightly sore throat. He denies any headache, dizziness, cough, shortness of breath, chest pain or palpitations, abdominal pain, nausea or vomiting, back pain. He denies abnormal color or frequency in urine. He does report having a couple episodes of diarrhea over the past 2 days which were loose and brown. He denies any melena. Patient to remain in ICU for further management at this time. Allergies Allergy/AdvReac Type Severity Reaction Status Date / Time No Known Allergies Allergy Unverified 01/01/22 15:51 Home Medications Medication Instructions Recorded Confirmed Type No Known Home Medications 01/01/22 01/01/22 History Patient History Medical History No pertinent past medical history Surgical History H/O wisdom tooth extraction Hx of eye surgery Family History Mother Anemia Social History Smoking Status: Never smoker Hx Alcohol Use: Yes Alcohol type: beer Hx Substance Use: No Communication Ability: Effective Hearing Ability: Normal Drive Man Required: No Beliefs That Will Affect Care: None marital status: Single Current Living Situation: Alone Current Living Situation Comment: roommates current occupational status: student Other Information That Helps Us Care for You: No Feels Safe at Home: Yes Safety Concerns: Feels Safe At This Time Review of Systems Review of Systems: All systems reviewed & are unremarkable except as noted in HPI & below Physical Exam Constitutional: WD/WN, vitals as above cooperative and comfortable Eyes: PERRL, conjunctivae normal, anicteric sclerae ENMT: external ear and nose normal, oropharynx normal Neck: trachea midline, no thyromegaly Respiratory: normal respiratory effort, lungs clear to auscultation Cardiovascular: RRR, no murmur, no edema Heart Sounds: normal S1 and normal S2 Vessels: no JVD Extremities: no edema Gastrointestinal (Abdomen): normal bowel sounds, soft, nontender, no hepatosplenomegaly Musculoskeletal: no cyanosis or clubbing, extremities motor strength 5/5 Skin: no rashes, warm and dry Neurologic: PERRL, EOMI, accommodation nl, no face palsy, no dysarthria Psychiatric: A+Ox3, euthymic affect Results & Data Results & Data ([facility]) Vital Signs (Past 12 Hours) Vital Signs Temp Pulse Pulse Resp BP BP Pulse Ox 01/02/22 01:27 37.2 C 01/02/22 01:00 90 23 94 01/02/22 01:00 98 H 20 119/54 L 94 01/02/22 00:00 97 H 15 123/58 L 95 01/01/22 23:15 93 01/02/22 00:40 105 H 01/01/22 23:31 39.6 C H 01/01/22 23:00 106 H 23 01/01/22 23:00 142/56 H 01/01/22 22:45 103 H 21 100 01/01/22 22:45 148/61 H 01/01/22 22:30 107 H 24 100 01/01/22 22:30 118/59 L 01/01/22 22:15 105 H 18 99 01/01/22 22:15 125/60 01/01/22 22:10 110 H 23 100 01/01/22 22:10 37.9 C H 01/01/22 21:25 36.5 C 102 H 18 132/55 L 100 01/01/22 21:10 36.8 C 103 H 20 151/45 H 100 01/01/22 21:14 36.6 C 115 H 20 142/62 H 100 01/01/22 22:10 102 H 18 125/60 100 01/01/22 20:46 36.8 C 92 H 20 137/63 100 01/01/22 20:24 63 01/01/22 19:27 37.0 C 82 14 140/63 100 01/01/22 18:57 36.7 C 76 16 133/61 100 01/01/22 18:45 36.9 C 76 20 140/60 100 01/01/22 18:42 01/01/22 18:30 77 20 100 01/01/22 18:30 141/64 H 01/01/22 18:20 142/65 H 01/01/22 18:11 37.1 C 78 16 146/62 H 99 01/01/22 18:26 37.1 C 80 16 142/65 H 99 01/01/22 18:20 37.1 C 87 20 142/65 H 100 01/01/22 16:23 83 20 136/67 97 01/01/22 14:40 85 20 135/86 98 01/01/22 14:26 37.3 C 100 H 18 118/68 100 O2 Del Method 01/02/22 01:27 01/02/22 01:00 01/02/22 01:00 01/02/22 00:00 01/01/22 23:15 01/02/22 00:40 01/01/22 23:31 01/01/22 23:00 01/01/22 23:00 01/01/22 22:45 01/01/22 22:45 01/01/22 22:30 01/01/22 22:30 01/01/22 22:15 01/01/22 22:15 01/01/22 22:10 01/01/22 22:10 01/01/22 21:25 01/01/22 21:10 01/01/22 21:14 01/01/22 22:10 01/01/22 20:46 01/01/22 20:24 01/01/22 19:27 01/01/22 18:57 01/01/22 18:45 01/01/22 18:42 Room Air 01/01/22 18:30 01/01/22 18:30 01/01/22 18:20 01/01/22 18:11 Room Air 01/01/22 18:26 01/01/22 18:20 01/01/22 16:23 Room Air 01/01/22 14:40 Room Air 01/01/22 14:26 Coding Level of Care Code 14580 Inpt Consult Level 3 Diagnoses Microcytic anemia D50.9 Blood transfusion reaction T80.92XA Iron deficiency E61.1 Splenomegaly R16.1 Strep sore throat J02.0
[2022-01-02 02:21] LABS: Anisocytosis Present; Hypochromasia Present; Immature Granulocytes # (auto) 0.04 K/uL (0.00-0.02); Immature Granulocytes % (auto) 0.7 %; Lymphocytes # (auto) 0.73 K/uL (1.2-3.4); Microcytosis Present; Monocytes # (auto) 0.77 K/uL (0.24-0.82); Monocytes % (auto) 12.6 %; Neutrophils # (auto) 4.56 K/uL (1.4-6.5); Neutrophils % (auto) 74.7 %; Ovalocytes 1+; Schistocytes 1+; Tear Drop Cells 1+
[2022-01-02 02:55] LABS: Blood Urine Negative (Negative)
[2022-01-02] MEDS ORDERED: ONDANSETRON INJ 2 MG/ML 2 ML VIAL ONE ×2 (04:00→16:31)
[2022-01-02] MEDS: ACETAMINOPHEN 325 MG TAB PO PRN ×2 (04:02→07:57)
[2022-01-02 04:50] LABS: Appearance Urine Clear (Clear); Bilirubin Urine Negative (Negative); Blood Urine Negative (Negative); Color Urine Yellow; Glucose Urine UA Negative (Negative); Ketones Urine 1+ (Negative); Leukocyte Esterase Urine Negative (Negative); Nitrite Urine Negative (Negative); Protein Urine Negative (Negative); Specific Gravity Urine 1.011 (1.000-1.030); Urobilinogen Urine Negative (Negative); pH Urine 5.5 (4.5-7.5)
[2022-01-02] MEDS ORDERED: ONDANSETRON INJ 2 MG/ML 2 ML VIAL IV STA ×2 (05:18→16:39)
[2022-01-02 06:02] LABS: Alanine Aminotransferase 10 U/L (7-52); Albumin Level 3.9 gm/dl (3.4-5.0); Alkaline Phosphatase 32 U/L (34-104); Anion Gap 7 (3-11); Aspartate Aminotransferase 22 U/L (13-39); BUN Creatinine Ratio 16.7 (10-20); Bilirubin Direct 0.5 mg/dl (0-0.2); Bilirubin,Total 2.1 mg/dl (0.2-1.0); Blood Urea Nitrogen 12 mg/dl (6-23); Calcium 8.3 mg/dl (8.5-10.1); Carbon Dioxide 25 mmol/L (21-32); Chloride 100 mmol/L (98-107); Creatinine Clr Calc Pharmacy 178.8 ml/min; Est GFR (African American) > 150.0 ml/min; Est GFR (Non-African American) 133.3 ml/min; Glucose 99 mg/dl (70-99(Fasting)); Magnesium 1.9 mg/dl (1.7-2.4); Phosphorus 4.4 mg/dl (2.5-4.9); Potassium 3.7 mmol/L (3.5-5.1); Sodium 132 mmol/L (136-145)
[2022-01-02 06:06] LABS: Fibrinogen 326 mg/dl (184-400); INR 1.2 (0.9-1.1); Partial Thromboplastin Ratio 1.1; Partial Thromboplastin Time 30.7 Seconds (21.0-31.0); Prothrombin Time 12.2 Seconds (9.0-12.0)
[2022-01-02] MEDS: PANTOprazole 40 MG in SYRINGE 0 ML IV SCH (07:58)
[2022-01-02] MEDS: AMOXICILLIN 500 MG CAP PO SCH ×3 (07:58→20:08)
--- NOTE | 2022-01-02 09:31 | Critical Care Progress Note ---
Date of Service January 02, 2022 Assessment & Plan (1) Microcytic anemia: Plan: Impression: Neuro - [facility] ICU: Negative Cardiac - No history of cardiac disease. Currently hemodynamically stable. Continuous monitoring on telemetry Respiratory - Lungs clear to auscultation. No history of pulmonary disease. Denies smoking. Continuous monitoring pulse ox GI - Regular diet RENAL/LYTES - Creatinine within normal limits, routine BMPs and replete electrolytes as indicated - Strict I's and O's ENDO - No history of diabetes or thyroid disease, ICU hyperglycemic protocol HEME - Microcytic anemiauncertain of exact etiology at this time but lab work seems to be in favor of iron deficiency anemia. Patient does report a regular diet without restrictions -Patient does report family history of anemia on his mother side -CT chest and abdomen without evidence of bleeding. Did note splenomegaly on CT abdomen and pelvis. -Elevated direct bili of 1.4 -Peripheral smear pending, ESR pending, urine blood pending, coags and fibrinogen pending -LDH 87, iron 10, TIBC 377, unsaturated IBC 367, transferrin 3, ferritin 8.2 -Initial hemoglobin 5.7, 7.8 after transfusion. Trend H&H and transfuse as necessary -Of note, patient did have blood transfusion reaction, additional laboratory studies would likely be affected by this -Ordered reticulocyte count and haptoglobin: haptoglobin should be from initial lab sampling if after transfusion reaction likely unreliable -Given lack of black tarry stools and low pretest probability for GI losses canceled tagged red blood cell scan at this time -Guaiac stool specimen if produced while in the hospital -Iron sulfate 325 mg daily and vitamin C 1000 mg daily Blood transfusion reaction Fever of 39.6 on second unit of RBCs, no other symptoms and now afebrile. Transfusion stopped prior to completion. Transfusion reaction labs pending. Patient was given acetaminophen. ID - COVID-19 negative. EBV and parvovirus pending Strep positive. Continue amoxicillin LINES/IV ACCESS - Peripheral IVs DVT PROPHYLAXIS - SCDs Stable for downgrade out of ICU (2) Blood transfusion reaction: (3) Iron deficiency: (4) Splenomegaly: (5) Strep sore throat: Admission and Anticipated Discharge Date Admission Date: January 01, 2022 Subjective Feels improved, no chest pain no shortness of breath. Denies history of black tarry stools normal stooling. No family history of autoimmune disease. Mother has a history of anemia which he attributes to heavy menses which required surgery for her menstrual periods. Denies abdominal pain, lives normally outside of [place] however he is here for school at [employer] [facility] [employer]. Advised patient to follow-up with primary care doc get started on iron supplementation. Advised he will need further evaluation for possible additional causes of anemia. Patient denies dietary changes, not vegan and eats red meat. Review of Systems Review of Systems: Unremarkable Physical Exam Physical Exam: General: Alert. nontoxic. Skin: Warm, dry, Head: Atraumatic Ears, nose, mouth and throat: airway patent Cardiovascular: Normal peripheral perfusion Respiratory: no respiratory distress Gastrointestinal: Non distended Musculoskeletal: No deformity Results & Data Results & Data ([facility]) Vital Signs (Past 12 Hours) Vital Signs Temp Pulse Resp BP Pulse Ox O2 Del Method 01/02/22 08:00 66 20 100 Room Air 01/02/22 08:00 128/61 01/02/22 08:00 36.8 C 01/02/22 07:15 36.9 C 71 16 131/62 100 01/02/22 06:26 36.7 C 66 18 122/57 L 99 01/02/22 06:13 36.5 C 01/02/22 05:26 36.5 C 61 12 133/59 L 99 01/02/22 04:26 36.6 C 68 17 112/45 L 98 01/02/22 03:56 36.7 C 73 18 128/51 L 97 01/02/22 03:41 36.7 C 74 18 134/53 L 100 01/01/22 22:10 36.6 C 76 15 132/56 L 99 01/02/22 03:15 36.8 C 80 20 132/55 L 98 01/02/22 01:27 37.2 C 01/02/22 01:00 90 23 94 01/02/22 01:00 98 H 20 119/54 L 94 01/02/22 00:00 97 H 15 123/58 L 95 01/01/22 23:15 93 01/02/22 00:40 105 H 01/01/22 23:31 39.6 C H 01/01/22 23:00 106 H 23 01/01/22 23:00 142/56 H 01/01/22 22:45 103 H 21 100 01/01/22 22:45 148/61 H 01/01/22 22:30 107 H 24 100 01/01/22 22:30 118/59 L 01/01/22 22:15 105 H 18 99 01/01/22 22:15 125/60 01/01/22 22:10 110 H 23 100 01/01/22 22:10 37.9 C H 01/01/22 22:10 102 H 18 125/60 100 Critical Care Results & Data Vital Signs (Past 12 Hours) Vital Signs Temp Pulse Resp BP Pulse Ox O2 Del Method 01/02/22 11:00 62 19 129/65 100 01/02/22 10:08 68 15 100 01/02/22 10:08 131/64 01/02/22 10:00 61 16 100 01/02/22 09:00 68 16 98 01/02/22 08:00 66 20 100 Room Air 01/02/22 08:00 128/61 01/02/22 08:00 36.8 C 01/02/22 07:15 36.9 C 71 16 131/62 100 01/02/22 06:26 36.7 C 66 18 122/57 L 99 01/02/22 06:13 36.5 C 01/02/22 05:26 36.5 C 61 12 133/59 L 99 01/02/22 04:26 36.6 C 68 17 112/45 L 98 01/02/22 03:56 36.7 C 73 18 128/51 L 97 01/02/22 03:41 36.7 C 74 18 134/53 L 100 01/02/22 03:15 36.8 C 80 20 132/55 L 98 01/02/22 01:27 37.2 C Lab & Micro Results (Past 24 Hours) RBC 4.52 M/uL (4.63-6.08) L 01/02/22 WBC 7.18 K/ul (4.8-10.8) 01/02/22 Hgb 7.8 g/dl (14.0-18.0) L 01/02/22 Hct 27.7 % (40.1-51.0) L 01/02/22 MCV 61.3 fL (80.0-100.0) L 01/02/22 MCH 17.3 pg (25.0-34.0) L 01/02/22 MCHC 28.2 g/dL (32.0-36.0) L 01/02/22 RDW Standard Deviation 60.4 fL (36.4-46.3) H 01/02/22 RDW Coefficient of Variation 29.2 % (11.5-14.5) H 01/02/22 Plt Count 131 K/uL (130-400) 01/02/22 Nucleated Red Blood Cells % (auto) 0.3 % 01/02 Nucleated RBC Absolute Count (auto) 0.02 K/uL (0-0) H 12/09 09/28 Neutrophils (%) (Auto) 73.5 % 01/02/22 Lymphocytes (%) (Auto) 16.2 % 01/02/22 Monocytes # (Auto) 0.71 K/uL (0.24-0.82) 01/02/22 Eosinophils # (Auto) 0.00 K/uL (0-0.50) 01/02/22 Immature Granulocyte % (Auto) 0.4 % 01/02/22 Neutrophils # (Auto) 5.28 K/uL (1.4-6.5) 01/02/22 Lymphocytes # (Auto) 1.16 K/uL (1.2-3.4) L 01/02/22 Monocytes # (Auto) 0.71 K/uL (0.24-0.82) 01/02/22 Eosinophils # (Auto) 0.00 K/uL (0-0.50) 01/02/22 Basophils # (Auto) 0.00 K/uL (0-0.2) 01/02/22 Immature Granulocyte # (Auto) 0.03 K/uL (0.00-0.02) H 01/02 Polychromasia 1+ 01/02/22 Hypochromasia Present 01/02/22 Anisocytosis Present 01/02/22 Microcytosis Present 01/02/22 Tear Drop Cells 1+ 01/02/22 Ovalocytes 1+ 01/02/22 Schistocytes 1+ 01/02/22 Na 132 mmol/L (136-145) L 01/02/22 K 3.7 mmol/L (3.5-5.1) 01/02/22 Cl 100 mmol/L (98-107) 01/02/22 CO2 25 mmol/L (21-32) 01/02/22 Anion Gap 7 (3-11) 01/02/22 BUN 12 mg/dl (6-23) 01/02/22 Creatinine 0.72 mg/dl (0.6-1.4) 01/02/22 Estimated GFR ( Amer) > 150.0 ml/min 01/02/22 Estimated GFR (Non-Af Amer) 133.3 ml/min 01/02/22 BUN/Creatinine Ratio 16.7 (10-20) 01/02/22 Glu 99 mg/dl (70-99(Fasting)) 01/02/22 Ca 8.3 mg/dl (8.5-10.1) L 01/02/22 Phosphorus Level 4.4 mg/dl (2.5-4.9) 01/02/22 Total Bilirubin 2.1 mg/dl (0.2-1.0) H 01/02/22 Direct Bilirubin 0.5 mg/dl (0-0.2) H 01/02/22 AST 22 U/L (13-39) 01/02/22 ALT 10 U/L (7-52) 01/02/22 Alkaline Phosphatase 32 U/L (34-104) L 01/02/22 TP 7.0 gm/dl (6.0-8.3) 01/02/22 Albumin 3.9 gm/dl (3.4-5.0) 01/02/22 Globulin 3.1 gm/dl (2.5-4.0) 01/01/22 Albumin/Globulin Ratio 1.4 (0.9-2) 01/01/22 Lactate Dehydrogenase 87 U/L (86-244) 01/01/22 Mg 1.9 mg/dl (1.7-2.4) 01/02/22 04:36 Calcium Level 8.3 mg/dl (8.5-10.1) L 01/02/22 04:36 Prothromb Time International Ratio 1.2 (0.9-1.1) H 01/02/22 04 :36 Diagnostic Findings (Past 24 Hours) Abdomen/Pelvis CT 01/01/22 16:30 CT SCAN OF THE CHEST, ABDOMEN, AND PELVIS WITHOUT IV CONTRAST CLINICAL HISTORY: Anemia. Lethargy. COMPARISON STUDY: No priors. TECHNIQUE: Unenhanced CT scan of the chest, abdomen, and pelvis was performed from the thoracic inlet to the proximal femora. Images are reviewed in the axial, sagittal, and coronal planes. IV contrast was not administered as per the referring clinician. Note that the examination was performed in significantly suboptimal fashion without oral and IV contrast. A dose lowering technique was utilized adhering to the principles of ALARA. CT DOSE: 528.34 mGy.cm FINDINGS: CHEST: Thyroid: Imaged portions of the thyroid gland are normal in size and attenuation. Thoracic aorta: The thoracic aorta is normal in caliber and demonstrates standard 3-vessel arch anatomy. Heart: The heart is normal in size and without pericardial effusion. There is diminished attenuation of the cardiac blood pool as compared to the myocardium suggesting anemia. Lungs and pleural spaces: There is no airspace consolidation or pleural effusion. The trachea and central airways are clear. Subcentimeter foci of pleural-based nodularity along the right major fissure are of doubtful significance. Mediastinum: There is no mediastinal lymphadenopathy. Lorna: Not well assessed without IV contrast. Axillae: There is no axillary lymphadenopathy. Bony thorax: No lytic or blastic lesions are identified. ABDOMEN AND PELVIS: Liver: The unenhanced liver is normal in size, contour, and attenuation. There is no intrahepatic biliary ductal dilatation. Gallbladder: Unremarkable. Spleen: The spleen is enlarged, measuring 18.1 cm in craniocaudal length. Pancreas: Unremarkable. Adrenal glands: Unremarkable. Kidneys: The unenhanced kidneys are normal in size and without hydronephrosis. No renal calculi are identified. There is no evidence of contour deforming mass lesion. Abdominal vasculature: The abdominal aorta is normal in course and caliber. Bowel: There is no bowel obstruction. The appendix is normal as visualized. Peritoneum: There is no intraperitoneal free air or abdominal ascites. There is a tiny fat-containing umbilical hernia. Lymphadenopathy: There are numerous prominent mesenteric lymph nodes. No retroperitoneal, iliac chain, pelvic sidewall, or abnormal adenopathy is identified. Pelvic viscera: The bladder, prostate, and seminal vesicles are normal as visualized. Skeletal structures: No lytic or blastic lesions are seen. IMPRESSION: 1. No active disease in the chest. 2. There is evidence of anemia. 3. Splenomegaly. 4. There are numerous prominent mesenteric lymph nodes. These of indeterminate etiology and significance, and may be reactive. 5. Additional findings as above. ACT 112: Negative or not required by law. Electronically signed by: Roderick Aguila M.D. 01/01/2022 5:[address] 01/01/22 16:30 CT SCAN OF THE CHEST, ABDOMEN, AND PELVIS WITHOUT IV CONTRAST CLINICAL HISTORY: Anemia. Lethargy. COMPARISON STUDY: No priors. TECHNIQUE: Unenhanced CT scan of the chest, abdomen, and pelvis was performed from the thoracic inlet to the proximal femora. Images are reviewed in the axial, sagittal, and coronal planes. IV contrast was not administered as per the referring clinician. Note that the examination was performed in significantly suboptimal fashion without oral and IV contrast. A dose lowering technique was utilized adhering to the principles of ALARA. CT DOSE: 528.34 mGy.cm FINDINGS: CHEST: Thyroid: Imaged portions of the thyroid gland are normal in size and attenuation. Thoracic aorta: The thoracic aorta is normal in caliber and demonstrates standard 3-vessel arch anatomy. Heart: The heart is normal in size and without pericardial effusion. There is diminished attenuation of the cardiac blood pool as compared to the myocardium suggesting anemia. Lungs and pleural spaces: There is no airspace consolidation or pleural effusion. The trachea and central airways are clear. Subcentimeter foci of pleural-based nodularity along the right major fissure are of doubtful significance. Mediastinum: There is no mediastinal lymphadenopathy. Lorna: Not well assessed without IV contrast. Axillae: There is no axillary lymphadenopathy. Bony thorax: No lytic or blastic lesions are identified. ABDOMEN AND PELVIS: Liver: The unenhanced liver is normal in size, contour, and attenuation. There is no intrahepatic biliary ductal dilatation. Gallbladder: Unremarkable. Spleen: The spleen is enlarged, measuring 18.1 cm in craniocaudal length. Pancreas: Unremarkable. Adrenal glands: Unremarkable. Kidneys: The unenhanced kidneys are normal in size and without hydronephrosis. No renal calculi are identified. There is no evidence of contour deforming mass lesion. Abdominal vasculature: The abdominal aorta is normal in course and caliber. Bowel: There is no bowel obstruction. The appendix is normal as visualized. Peritoneum: There is no intraperitoneal free air or abdominal ascites. There is a tiny fat-containing umbilical hernia. Lymphadenopathy: There are numerous prominent mesenteric lymph nodes. No retroperitoneal, iliac chain, pelvic sidewall, or abnormal adenopathy is identified. Pelvic viscera: The bladder, prostate, and seminal vesicles are normal as visualized. Skeletal structures: No lytic or blastic lesions are seen. IMPRESSION: 1. No active disease in the chest. 2. There is evidence of anemia. 3. Splenomegaly. 4. There are numerous prominent mesenteric lymph nodes. These of indeterminate etiology and significance, and may be reactive. 5. Additional findings as above. ACT 112: Negative or not required by law. Electronically signed by: Roderick Aguila M.D. 01/01/2022 5:05 PM I & O Totals 24 Hours 01/01/22 01/02/22 01/03/22 06:59 06:59 06:59 Intake Total 2960 / 2960 800 / 800 Output Total 1051 / 1051 1000 / 1000 Balance 1909 / 1909 -200 / -200 Cumulative 01/01/22 14:23 thru 01/02/22 12:44 Intake Total 3760 Output Total 2051 Balance 1709 RT Ventilator Mngmt (Last Documented) Ventilator Ordered Settings Respiratory Rate 19 01/02/22 11:00 Ventilator - PT Measurements Respiratory Rate 19 Coding Level of Care Code 53581 Subseq Hosp Care Lvl 3 Diagnoses Microcytic anemia D50.9 Blood transfusion reaction T80.92XA Iron deficiency E61.1 Splenomegaly R16.1 Strep sore throat J02.0
[2022-01-02 10:17] LABS: Hematocrit (blood only) 27.7 % (40.1-51.0); Hemoglobin 7.8 g/dl (14.0-18.0); Mean Corpuscular Hemoglobin 17.3 pg (25.0-34.0); Mean Corpuscular Hgb Conc 28.2 g/dL (32.0-36.0); Mean Corpuscular Volume 61.3 fL (80.0-100.0); Nucleated RBC # (auto) 0.02 K/uL (0-0); Nucleated RBC % (auto) 0.3 %; Platelet Count 131 K/uL (130-400); RDW Coefficient of Variation 29.2 % (11.5-14.5); RDW Standard Deviation 60.4 fL (36.4-46.3); Red Blood Count 4.52 M/uL (4.63-6.08); White Blood Count 7.18 K/ul (4.8-10.8)
[2022-01-02 10:38] LABS: Hypochromasia Present; Immature Granulocytes # (auto) 0.03 K/uL (0.00-0.02); Immature Granulocytes % (auto) 0.4 %; Lymphocytes # (auto) 1.16 K/uL (1.2-3.4); Lymphocytes % (auto) 16.2 %; Microcytosis Present; Monocytes # (auto) 0.71 K/uL (0.24-0.82); Monocytes % (auto) 9.9 %; Neutrophils # (auto) 5.28 K/uL (1.4-6.5); Neutrophils % (auto) 73.5 %; Ovalocytes 1+; Polychromasia 1+; Tear Drop Cells 1+
[2022-01-02 11:00] LABS: Reticulocyte % < 0.5 % (0.5-2.0); Reticulocytes # < 0.02 10^6/uL (0.02-0.10)
[2022-01-02] MEDS: ASCORBIC ACID 500 MG TAB PO SCH (15:01)
[2022-01-02] MEDS: FERROUS SULFATE 325 MG TAB PO SCH (15:01)
[2022-01-02 18:35] LABS: Folate (Folic Acid) > 22.30 ng/ml (>5.38)
[2022-01-02 18:36] LABS: Vitamin B12 > 1500 pg/ml (180-914)
--- NOTE | 2022-01-02 21:32 | Hospitalist Progress Note ---
Date of Service January 02, 2022 Assessment & Plan (1) Anemia: Plan: Patient abhishek be admitted to the ICU due to very low hemoglobin Ordered ct scan of chest and abd/pelvis to rule out any internal bleeding. This was negative. iron studies suggest iron def. anemia. consulted hematology who agrees this is mainly due to iron def. anemia. given history of diarrhea, concern over inflammatory bowel, will consult GI. transfused 3 PRBC (2) Strep sore throat: Plan: will treat with amoxicillin. will monitor Admission and Anticipated Discharge Date Admission Date: January 01, 2022 Subjective Patient reports having more energy, reports less fatigue. Review of Systems Review of Systems: All systems reviewed & are unremarkable except as noted in HPI & below Physical Exam Physical Exam: Constitutional: WD/WN, vitals as above Eyes: PERRL, conjunctivae normal, anicteric sclerae ENMT: external ear and nose normal, oropharynx normal Neck: trachea midline, no thyromegaly Respiratory: normal respiratory effort, lungs clear to auscultation Cardiovascular: RRR, no murmur, no edema Gastrointestinal (Abdomen): normal bowel sounds, soft, nontender, no hepatosplenomegaly Musculoskeletal: no cyanosis or clubbing, extremities motor strength 5/5 Skin: no rashes, warm and dry Neurologic: PERRL, EOMI, accommodation nl, no face palsy, no dysarthria Psychiatric: A+Ox3, euthymic affect Lymphatic: no cervical or axillary lymphadenopathy Results & Data Results & Data ([facility]) Vital Signs (Past 12 Hours) Vital Signs Temp Pulse Pulse Pulse Resp BP BP 01/02/22 21:26 36.6 C 67 16 129/70 01/02/22 15:40 36.8 C 70 16 01/02/22 14:00 62 18 01/02/22 13:00 68 19 01/02/22 13:00 123/68 01/02/22 12:00 36.7 C 65 20 01/02/22 12:00 133/68 01/02/22 11:00 62 19 129/65 01/02/22 10:08 68 15 01/02/22 10:08 131/64 01/02/22 10:00 61 16 Pulse Ox O2 Del Method 01/02/22 21:26 100 Room Air 01/02/22 15:40 100 Room Air 01/02/22 14:00 01/02/22 13:00 01/02/22 13:00 01/02/22 12:00 01/02/22 12:00 01/02/22 11:00 01/02/22 10:08 01/02/22 10:08 01/02/22 10:00 100 PG Care Time/CCT Total # of Minutes Spent Total Time Spent with Patient: Total time spent is greater than 50% in coordination of care (as documented) at patient's floor/unit and/or counseling patient: Coding Level of Care Code 96493 Subseq Hosp Care Lvl 3 Diagnoses Anemia D64.9 Strep sore throat J02.0 Time Spent (min) 35
[2022-01-02] MEDS ORDERED: ONDANSETRON INJ 2 MG/ML 2 ML VIAL IV PRN (22:30)
--- NOTE | 2022-01-03 02:33 | Consultation Report ---
DATE OF CONSULTATION: 01/02/2022 REASON FOR CONSULTATION: Anemia. 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 Labs obtained while in the ER revealed significantly low hemoglobin of 5.3 with hematocrit of 20.6, MCV of 54.3. Imaging studies including CT chest, abdomen and pelvis also obtained on 01/01/2022 revealed no active disease in the chest, multiple prominent mesenteric lymph nodes of indeterminate etiology, possibly reactive and splenomegaly with spleen size of 18 cm. He denies fever, chills, night sweats, palpable lymphadenopathy, significant weight loss or any other issues. Has a family history of pancreatic cancer in his father, who he states, was negative for any genetic mutations. Paternal cousin also had breast cancer at the age of 30. Denies any family history of blood disorder such as thalassemia. PAST MEDICAL HISTORY: Not significant. PAST SURGICAL HISTORY: Not significant. FAMILY HISTORY: Significant for pancreatic cancer in his father and breast cancer in a paternal cousin. SOCIAL HISTORY: Drinks alcohol occasionally. Denies smoking or illicit drug use. REVIEW OF SYSTEMS: CONSTITUTIONAL: Denies night sweats or fever. CARDIOVASCULAR: Denies chest pain or palpitations. RESPIRATORY: Denies shortness of breath or cough. GASTROINTESTINAL: Positive for diarrhea. Denies hematemesis, melena. GENITOURINARY: Denies urinary frequency, hematuria or dysuria. NEUROLOGIC: Negative for headaches or dizziness. LYMPHATICS/HEMATOLOGIC: Denies new adenopathy, petechia or bleeding. MUSCULOSKELETAL: Denies new joint or back pain. PHYSICAL EXAMINATION: VITAL SIGNS: Blood pressure 123/68, heart rate 70, respiratory rate 16, temperature 36.8, oxygen saturation 100% on room air. IMAGING STUDIES: As noted in HPI. ASSESSMENT AND PLAN: 1. Severe microcytic anemia. 2. Iron deficiency. 3. Family history of pancreatic cancer. 4. Diarrhea. 5. Splenomegaly with possible reactive mesenteric lymph nodes. A very pleasant 21-year-old gentleman who presented with generalized fatigue and was found to have severe anemia with hemoglobin of 5.3. Peripheral smear review by pathology revealed hypochromic, microcytic erythrocytes, anisopoikilocytosis with ovalocytes and rare schistocytes. Based on review of his labs, it appears that he has iron deficiency anemia with low ferritin of 8.2 and MCV on admission of 54. Would recommend GI workup for possible G.I bleeding given low iron levels, severe microcytosis and possibly reactive mesenteric lymph nodes noted on imaging. He also complained of diarrhea noticed several days ago. It is unclear why he has splenomegaly; however, would recommend ruling out thalassemia as this could also presents with severe microcytosis, although patients with thalassemia are usually not iron deficient. He also has mildly elevated bilirubin, which could be due to mild hemolysis, which could also be seen in patients with some form of thalassemia.Hemolysis could also be due to possible transfusion reaction. At this time, no indication of severe hemolysis given normal LDH and normal Hadley test. As such, does not require steroids. Would recommend giving IV Venofer 300 mg every other day while hospitalized x3 doses. Also, recommend checking vitamin B12 and folate as well to rule out coexisting deficiencies. Will plan to see him upon discharge from hospital for reassessment and to follow up on splenomegaly as well as mildly enlarged mesenteric lymphadenopathy. Thank you for this consult. Hematology will sign off at this time to see him upon discharge from hospital. Please feel free to call if you have any further questions. Job ID: [id number] [facility]
[2022-01-03 06:41] LABS: Hematocrit (blood only) 28.1 % (40.1-51.0); Hemoglobin 7.7 g/dl (14.0-18.0); Mean Corpuscular Hemoglobin 17.1 pg (25.0-34.0); Mean Corpuscular Hgb Conc 27.4 g/dL (32.0-36.0); Mean Corpuscular Volume 62.3 fL (80.0-100.0); Platelet Count 131 K/uL (130-400); RDW Coefficient of Variation 29.2 % (11.5-14.5); Red Blood Count 4.51 M/uL (4.63-6.08); White Blood Count 3.64 K/ul (4.8-10.8)
[2022-01-03 07:07] LABS: Anion Gap 6 (3-11); BUN Creatinine Ratio 15.2 (10-20); Blood Urea Nitrogen 10 mg/dl (6-23); Calcium 8.6 mg/dl (8.5-10.1); Carbon Dioxide 27 mmol/L (21-32); Chloride 103 mmol/L (98-107); Creatinine Clr Calc Pharmacy 195.1 ml/min; Est GFR (African American) > 150.0 ml/min; Est GFR (Non-African American) 138.2 ml/min; Glucose 96 mg/dl (70-99(Fasting)); Magnesium 1.9 mg/dl (1.7-2.4); Phosphorus 3.6 mg/dl (2.5-4.9); Potassium 3.7 mmol/L (3.5-5.1); Sodium 136 mmol/L (136-145)
[2022-01-03 07:19] LABS: Anisocytosis Present; Basophils # (auto) 0.01 K/uL (0-0.2); Basophils % (auto) 0.3 %; Eosinophils # (auto) 0.02 K/uL (0-0.50); Eosinophils % (auto) 0.5 %; Giant Platelets 1+; Immature Granulocytes # (auto) 0.02 K/uL (0.00-0.02); Immature Granulocytes % (auto) 0.5 %; Lymphocytes # (auto) 1.41 K/uL (1.2-3.4); Lymphocytes % (auto) 38.7 %; Microcytosis Present; Monocytes # (auto) 0.37 K/uL (0.24-0.82); Monocytes % (auto) 10.2 %; Neutrophils # (auto) 1.81 K/uL (1.4-6.5); Neutrophils % (auto) 49.8 %; Ovalocytes 1+; Polychromasia 1+; Tear Drop Cells 1+
[2022-01-03] MEDS: ASCORBIC ACID 500 MG TAB PO SCH (08:50)
[2022-01-03] MEDS: FERROUS SULFATE 325 MG TAB PO SCH (08:50)
[2022-01-03] MEDS: AMOXICILLIN 500 MG CAP PO SCH ×3 (08:50→21:20)
--- NOTE | 2022-01-03 09:50 | Gastrointestinal Consultation ---
Date of Consultation January 03, 2022 Assessment & Plan (1) Microcytic anemia: (2) Diarrhea: Plan -Obtain biofire stool panel -Follow CBC, CMP -Continue Protonix 40 mg BID for now in case of upper GI bleeding -EGD & colonoscopy on 01/04/22 to assess for underlying GI source of anemia -Hematology consult noted -Supportive care per primary team Supervising Physician Co-Signing Physician Notes Agree with ALFREDA Devi as above Abd: Soft, NT, ND, +BS Continue current therapy and supportive care Proceed with EGD and Colonoscopy tomorrow AM History of Present Illness Reason for Consultation: Anemia Attending Physician: Sonny Carlin History of Present Illness Patient is a 21 yo male who presented to the hospital with fatigue. He was noted to have severe anemia. His hemoglobin was 5.3 From a symptom standpoint, he has noted fatigue and diarrhea several days ago. His peripheral smear was reviewed and revealed hypochromic, microcytic erthyrocytes, anisopoikilocytosis with ovalocytes and schistocytes. He was seeen by hematology who felt that he had iron deficiency anemia and recommended a GI work-up to assess for GI bleeding given low iron levels. Hematology has evaluated this patient and advised a GI work-up as there was presently no signs of hemolysis given normal LDH and Hadley test. He is receiving IV Venofer 300 mg every other day x [address] scan of the abdomen pelvis has shown possible reactive mesenteric lymph nodes. He notes he began having diarrhea 2 times daily 5 days ago. His bilirubin is mildlly elevated at 2.1 and his imaging shows splenomegaly. EBV panel pending. Hematology assess for thalassemia as well. He notes his mom has a history of Crohn's Disease. He denies personally having issues in the past with his GI system. No significant PMH. No abdominal surgery. He has been transfused and H/H is now 7.7/28.1. He denies abdominal pain, rectal bleeding, melena, n/v, hematemesis. No NSAID use. Allergies Allergy/AdvReac Type Severity Reaction Status Date / Time No Known Allergies Allergy Unverified 01/01/22 15:51 Home Medications Medication Instructions Recorded Confirmed Type No Known Home Medications 01/01/22 01/01/22 History Patient History Medical History (Updated 01/04/22 @ 11:02 by Larry Trevino MD) Encounter for pre-operative examination No pertinent past medical history Surgical History H/O wisdom tooth extraction Hx of eye surgery Family History Mother Anemia Social History Smoking Status: Never smoker Hx Alcohol Use: Yes Alcohol type: beer Hx Substance Use: No Communication Ability: Effective Hearing Ability: Normal 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 Beliefs That Will Affect Care: None marital status: Single Current Living Situation: Alone Current Living Situation Comment: roommates current occupational status: student Other Information That Helps Us Care for You: No Feels Safe at Home: Yes Safety Concerns: Feels Safe At This Time Assistive Devices: None Review of Systems Constitutional: + fatigue and + malaise; no fever and no chills Respiratory: no cough and no dyspnea Cardiovascular: no chest pain Gastrointestinal: + diarrhea/loose stools; no abdominal pain, no blood in stools and no melena Musculoskeletal: no problem reported Integumentary: no problem reported Psychiatric: no problem reported Physical Exam Constitutional: well developed Respiratory: normal respiratory effort Cardiovascular: Rate/Rhythm: regular rate Gastrointestinal (Abdomen): normal bowel sounds, soft, nontender, no hepatosplenomegaly Musculoskeletal: Head/Neck/Chest: normocephalic Psychiatric: Orientation: alert and oriented x 3 Results & Data ([facility]) Vital Signs (Past 12 Hours) Vital Signs Temp Pulse Resp BP Pulse Ox O2 Del Method 01/03/22 07:26 36.5 C 67 18 113/68 99 Room Air PG Care Time/CCT Total # of Minutes Spent Total Time Spent with Patient: Total time spent is greater than 50% in coordination of care (as documented) at patient's floor/unit and/or counseling patient: Coding Level of Care Code 67150 Inpt Consult Level 4 Diagnoses Microcytic anemia D50.9 Diarrhea R19.7
[2022-01-03 13:06] LABS: EBV Nuclear Ag Antibody <18.00 U/mL
[2022-01-03] MEDS ORDERED: IRON SUCROSE 300 MG in SODIUM CHLORIDE 0.9% 250 ML IV ONE (18:20)
[2022-01-03 18:48] LABS: Adenovirus F 40/41 PCR Not Detected (NotDetected); Astrovirus PCR Not Detected (NotDetected); Campylobacter PCR Not Detected (NotDetected); Clostridium diff Toxin A/B PCR Not Detected (NotDetected); Cryptosporidium PCR Not Detected (NotDetected); Cyclospora cayetanensis PCR Not Detected (NotDetected); Entamoeba histolytica PCR Not Detected (NotDetected); Enteroaggregative E.coli(EAEC) Not Detected (NotDetected); Enteropathogenic E.coli (EPEC) Not Detected (NotDetected); Enterotoxigenic E.coli (ETEC) Not Detected (NotDetected); Giardia lamblia PCR Not Detected (NotDetected); Norovirus GI/GII PCR Not Detected (NotDetected); Plesiomonas shigelloides PCR Not Detected (NotDetected); Rotavirus A PCR Not Detected (NotDetected); Salmonella PCR Not Detected (NotDetected); Sapovirus PCR Not Detected (NotDetected); Shiga-like Toxin E.coli (STEC) Not Detected (NotDetected); Shigella/Enteroinvasive E.coli Not Detected (NotDetected); Vibrio cholerae PCR Not Detected (NotDetected); Vibrio species PCR Not Detected (NotDetected); Yersinia enterocolitica PCR Not Detected (NotDetected)
[2022-01-03] MEDS: LAVAGE SOLUTION 4000ML PO SCH (19:35)
--- NOTE | 2022-01-03 21:31 | Hospitalist Progress Note ---
Date of Service January 03, 2022 Assessment & Plan (1) Anemia: Plan: Patient abhishek be admitted to the ICU due to very low hemoglobin Ordered ct scan of chest and abd/pelvis to rule out any internal bleeding. This was negative. iron studies suggest iron def. anemia. consulted hematology who agrees this is mainly due to iron def. anemia. given history of diarrhea, concern over inflammatory bowel, will consult GI: will perform scopes on 01/04 Mother has crohns. transfused 3 PRBC (2) Strep sore throat: Plan: will treat with amoxicillin. will monitor Admission and Anticipated Discharge Date Admission Date: January 01, 2022 Subjective Patient reports feeling well. He has no new complaints. Review of Systems Review of Systems: All systems reviewed & are unremarkable except as noted in HPI & below Physical Exam Constitutional: WD/WN, vitals as above Eyes: PERRL, conjunctivae normal, anicteric sclerae ENMT: external ear and nose normal, oropharynx normal Neck: trachea midline, no thyromegaly Respiratory: normal respiratory effort, lungs clear to auscultation Cardiovascular: RRR, no murmur, no edema Gastrointestinal (Abdomen): normal bowel sounds, soft, nontender, no hepatosplenomegaly Musculoskeletal: no cyanosis or clubbing, extremities motor strength 5/5 Skin: no rashes, warm and dry Neurologic: PERRL, EOMI, accommodation nl, no face palsy, no dysarthria Psychiatric: A+Ox3, euthymic affect Lymphatic: no cervical or axillary lymphadenopathy Results & Data Results & Data ([facility]) Vital Signs (Past 12 Hours) Vital Signs Temp Pulse Resp BP Pulse Ox O2 Del Method 01/03/22 20:36 36.5 C 67 16 119/63 100 Room Air 01/03/22 15:11 36.6 C 60 16 122/64 99 Room Air 01/03/22 11:28 36.8 C 63 18 126/66 100 Room Air PG Care Time/CCT Total # of Minutes Spent Total Time Spent with Patient: Total time spent is greater than 50% in coordination of care (as documented) at patient's floor/unit and/or counseling patient: Coding Level of Care Code 04200 Subseq Hosp Care Lvl 2 Diagnoses Anemia D64.9 Strep sore throat J02.0
[2022-01-04] MEDS: LAVAGE SOLUTION 4000ML PO SCH (03:06)
[2022-01-04 06:32] LABS: Anion Gap 9 (3-11); Blood Urea Nitrogen 11 mg/dl (6-23); Calcium 8.7 mg/dl (8.5-10.1); Carbon Dioxide 26 mmol/L (21-32); Chloride 103 mmol/L (98-107); Est GFR (African American) > 150.0 ml/min; Est GFR (Non-African American) 145.7 ml/min; Glucose 79 mg/dl (70-99(Fasting)); Magnesium 1.8 mg/dl (1.7-2.4); Phosphorus 4.1 mg/dl (2.5-4.9); Potassium 3.5 mmol/L (3.5-5.1); Sodium 138 mmol/L (136-145)
[2022-01-04 06:38] LABS: Hematocrit (blood only) 29.2 % (40.1-51.0); Hemoglobin 7.9 g/dl (14.0-18.0); Mean Corpuscular Hemoglobin 17.1 pg (25.0-34.0); Mean Corpuscular Hgb Conc 27.1 g/dL (32.0-36.0); Mean Corpuscular Volume 63.2 fL (80.0-100.0); Platelet Count 137 K/uL (130-400); RDW Coefficient of Variation 30.3 % (11.5-14.5); RDW Standard Deviation 65.5 fL (36.4-46.3); Red Blood Count 4.62 M/uL (4.63-6.08); White Blood Count 3.76 K/ul (4.8-10.8)
[2022-01-04] MEDS: FERROUS SULFATE 325 MG TAB PO SCH (08:00)
[2022-01-04] MEDS: ASCORBIC ACID 500 MG TAB PO SCH (08:00)
[2022-01-04] MEDS: AMOXICILLIN 500 MG CAP PO SCH ×2 (08:00→14:52)
[2022-01-04 08:17] LABS: Eosinophils # (auto) 0.03 K/uL (0-0.50); Eosinophils % (auto) 0.8 %; Hypochromasia Present; Immature Granulocytes # (auto) 0.02 K/uL (0.00-0.02); Immature Granulocytes % (auto) 0.5 %; Lymphocytes # (auto) 1.64 K/uL (1.2-3.4); Lymphocytes % (auto) 43.6 %; Microcytosis Present; Neutrophils # (auto) 1.77 K/uL (1.4-6.5); Neutrophils % (auto) 47.1 %; Ovalocytes 1+; Schistocytes 1+; Tear Drop Cells 1+
--- NOTE | 2022-01-04 09:28 | History & Physical Bridge Note ---
Date of Service January 04, 2022 History & Physical Bridge Note I have examined the patient, reviewed the History & Physical and in the interval since the performance of the History & Physical I have noted the following changes of clinical significance: no changes noted Patient has completed his bowel prep. H/H 7.9/29.2 today. He denies acute issues overnight. Keep NPO & proceed with EGD & colonoscopy today. Supervising Physician Co-Signing Physician Notes Agree with ALFREDA Devi as above Abd: Soft, NT, ND, +BS Continue current therapy and supportive care Proceed with EGD and colonoscopy today as scheduled
--- NOTE | 2022-01-04 11:04 | Anesthesiology Consultation ---
Date of Service January 04, 2022 Assessment & Plan (1) Encounter for pre-operative examination: Chart Review Chart Review: Acceptable Risk for Surgery, Patient NOT seen in Pre Admission Testing and entry level account manager initiated Consults Requested none History Surgery Operation Date: 01/04/22 16:30 Proposed Procedures p Colonoscopy EGD Dr. Cesar Guerrero, Height/Weight Height: 6 ft 4 in Weight: 77.9 kg Allergies Allergy/AdvReac Type Severity Reaction Status Date / Time No Known Allergies Allergy Unverified 01/01/22 15:51 Medications Home Medications Medication Instructions Recorded Confirmed Last Taken No Known Home Medications 01/01/22 01/01/22 Unknown Active Medications Generic Name Dose Route Start Last Admin Trade Name Freq PRN Reason Stop Dose Admin Acetaminophen 650 mg 01/01/22 23:25 01/02/22 07:57 Acetaminophen 325 Mg Tab PO 01/31/22 23:24 650 mg Q4H PRN Administration temp/pain Amoxicillin 500 mg 01/01/22 21:00 01/04/22 08:00 Amoxicillin 500 Mg Cap PO 01/11/22 20:59 Not Given TID ASHLEY Ascorbic Acid 1,000 mg 01/02/22 13:30 01/04/22 08:00 Ascorbic Acid 500 Mg Tab PO 02/01/22 13:29 Not Given QAM ASHLEY Ferrous Sulfate 325 mg 01/02/22 13:30 01/04/22 08:00 Ferrous Sulfate 325 Mg Tab PO 02/01/22 13:29 Not Given QAM ASHLEY NPO Date Last Intake of Fluids: 01/03/22 Time Last Intake of Fluids: 23:59 Date Last Intake of Solids: 01/03/22 Time Last Intake of Solids: 23:59 Past Medical History Medical History (Updated 01/04/22 @ 11:02 by Larry Trevino MD) Encounter for pre-operative examination No pertinent past medical history Past Family History Family History Mother Anemia Past Surgical History Surgical History H/O wisdom tooth extraction Hx of eye surgery Social History Smoking Status: Never smoker Hx Alcohol Use: Yes Alcohol type: beer alcohol intake frequency: a few times a week Hx Substance Use: No Physical Exam Vital Signs Last Vital Signs Temp 36.5 C 01/04/22 08:17 Pulse 51 L 01/04/22 08:17 Resp 16 01/04/22 08:17 BP 132/67 01/04/22 08:17 Pulse Ox 100 01/04/22 08:17 O2 Del Method 01/04/22 08:17 Testing Laboratory Results 01/04/22 05:22 01/04/22 05:22 PT 12.2 Seconds (9.0-12.0) H 01/02/22 04:36 INR 1.2 (0.9-1.1) H 01/02/22 04:36 APTT 30.7 Seconds (21.0-31.0) 01/02/22 04:36 Urine Color Yellow 01/02/22 02:46 Urine Appearance Clear (Clear) 01/02/22 02:46 Urine pH 5.5 (4.5-7.5) 01/02/22 02:46 Ur Specific [place] 1.011 (1.000-1.030) 01/02/22 02:46 Urine Protein Negative (Negative) 01/02/22 02:46 Urine Glucose (UA) Negative (Negative) 01/02/22 02:46 Urine Ketones 1+ (Negative) H 01/02/22 02:46 Urine Nitrite Negative (Negative) 01/02/22 02:46 Ur Leukocyte Esterase Negative (Negative) 01/02/22 02:46 Blood Type A Negative 01/01/22 15:40 Antibody Screen NEGATIVE 01/01/22 15:40
[2022-01-04] MEDS ORDERED: PROPOFOL IV EMULSION 10 MG/ML 20 ML VIAL IV ONE ×3 (12:16→13:13)
[2022-01-04] MEDS ORDERED: LIDOCAINE 2% MPF LOCAL 5 ML VIAL INFIL ONE (12:16)
[2022-01-04] MEDS ORDERED: MIDAZOLAM HCL 1 MG/ML 2ML VIAL ONE (12:16)
[2022-01-04] MEDS ORDERED: ONDANSETRON INJ 2 MG/ML 2 ML VIAL ONE (12:16)
--- NOTE | 2022-01-04 13:47 | GI REPORT ---
Patient Name: Ramon Churchill Procedure Date: 01/04/2022 12:25 PM Date of : 2000 Admit Type: Inpatient Age: 21 Gender: Male Attending MD: Eugene Guerrero DO Procedure: Colonoscopy Providers: Eugene Guerrero DO Referring MD: Sonny Carlin M.D. Indications: Iron deficiency anemia Medicines: Monitored Anesthesia Care Complications: No immediate complications. Estimated Blood Loss: Estimated blood loss: none. Procedure: Pre-Anesthesia Assessment: - Prior to the procedure, a History and Physical was performed, and patient medications and allergies were reviewed. The patient's tolerance of previous anesthesia was also reviewed. The risks and benefits of the procedure and the sedation options and risks were discussed with the patient. All questions were answered, and informed consent was obtained. Prior Anticoagulants: The patient has taken no previous anticoagulant or antiplatelet agents. ASA Grade Assessment: I - A normal, healthy patient. After reviewing the risks and benefits, the patient was deemed in satisfactory condition to undergo the procedure. After I obtained informed consent, the scope was passed under direct vision. Throughout the procedure, the patient's blood pressure, pulse, and oxygen saturations were monitored continuously. The Colonoscope was introduced through the anus and advanced to the terminal ileum. The colonoscopy was performed without difficulty. The patient tolerated the procedure well. The quality of the bowel preparation was good. The terminal ileum, ileocecal valve, appendiceal orifice, and rectum were photographed. Findings: The perianal and digital rectal examinations were normal. The colon (entire examined portion) appeared normal. Impression: - The entire examined colon is normal. - No specimens collected. Recommendation: - [facility]. - Advance diet as tolerated. - Continue present medications. Eugene Guerrero DO 01/04/2022 1:47:39 PM This report has been signed electronically. Note Initiated On: 01/04/2022 12:25 PM Number of Addenda: 0 I attest to the content of the Intraoperative Record and orders documented therein, exceptions below {[id number]}
--- NOTE | 2022-01-04 13:50 | GI REPORT ---
Patient Name: Ramon Churchill Procedure Date: 01/04/2022 12:29 PM Date of : 2000 Admit Type: Inpatient Age: 21 Gender: Male Attending MD: Eugene Guerrero DO Procedure: Upper GI endoscopy Providers: Eugene Guerrero DO Referring MD: Sonny Carlin M.d. Indications: Iron deficiency anemia Medicines: Monitored Anesthesia Care Complications: No immediate complications. Estimated Blood Loss: Estimated blood loss: none. Procedure: Pre-Anesthesia Assessment: - Prior to the procedure, a History and Physical was performed, and patient medications and allergies were reviewed. The patient's tolerance of previous anesthesia was also reviewed. The risks and benefits of the procedure and the sedation options and risks were discussed with the patient. All questions were answered, and informed consent was obtained. Prior Anticoagulants: The patient has taken no previous anticoagulant or antiplatelet agents. ASA Grade Assessment: I - A normal, healthy patient. After reviewing the risks and benefits, the patient was deemed in satisfactory condition to undergo the procedure. After obtaining informed consent, the endoscope was passed under direct vision. Throughout the procedure, the patient's blood pressure, pulse, and oxygen saturations were monitored continuously. The Colonoscope was introduced through the mouth, and advanced to the third part of duodenum. The upper GI endoscopy was accomplished without difficulty. The patient tolerated the procedure well. Findings: The esophagus was normal. Multiple 2 to 5 mm sessile polyps with no stigmata of recent bleeding were found in the entire examined stomach. Biopsies were taken with a cold forceps for histology. The examined duodenum was normal. Biopsies for histology were taken with a cold forceps for evaluation of celiac disease. Impression: - Normal esophagus. - Multiple gastric polyps. Biopsied. - Normal examined duodenum. Biopsied. Recommendation: - [facility]. - Advance diet as tolerated. - Continue present medications. - Await pathology results. Eugene Guerrero DO 01/04/2022 1:50:41 PM This report has been signed electronically. Note Initiated On: 01/04/2022 12:29 PM Number of Addenda: 0 I attest to the content of the Intraoperative Record and orders documented therein, exceptions below {[id number]}
[2022-01-04] MEDS ORDERED: IRON SUCROSE 300 MG in SODIUM CHLORIDE 0.9% 250 ML IV SCH (15:00)
--- NOTE | 2022-01-04 15:24 | Anesthesiology Progress Note ---
Date of Service January 04, 2022 Anesthesia Post Procedure Vital Signs Vital Signs: Temp Pulse Resp BP BP Pulse Ox O2 Del Method 01/04/22 14:37 36.5 C 50 L 16 128/69 100 Room Air 01/04/22 14:20 36.4 C L 52 L 17 126/73 100 Room Air 01/04/22 13:53 61 18 135/70 99 Room Air 01/04/22 13:34 54 L 18 127/64 99 Room Air 01/04/22 13:21 73 18 111/46 L 99 Oxymask 01/04/22 11:43 36.9 C 69 18 148/75 H 97 Room Air 01/04/22 08:17 36.5 C 51 L 16 132/67 100 Room Air 01/03/22 20:36 36.5 C 67 16 119/63 100 Room Air O2 Flow Rate 01/04/22 14:37 01/04/22 14:20 01/04/22 13:53 01/04/22 13:34 01/04/22 13:21 5 01/04/22 11:43 01/04/22 08:17 01/03/22 20:36 Pain Intensity Generalized: Pain Intensity: 0 Transfer of Care Handoff Completed per policy Notes Mental Status: alert / awake / arousable and participated in evaluation Patient Amnestic to Procedure: Yes Nausea / Vomiting: adequately controlled Pain: adequately controlled Airway Patency, RR, SpO2: stable & adequate BP & HR: stable & adequate Hydration State: stable & adequate Anesthetic Complications: no major complications apparent and Pt Satisfied with anesthetic care
[2022-01-04 23:46] LABS: Parvovirus B19 Qual Source Plasma; Parvovirus B19 Qualitative Not Detected (Not Detected)
--- NOTE | 2022-01-06 23:14 | Discharge Summary ---
Date of Service January 04, 2022 Admission HPI Per Admitting Provider This is a pleasant 21 yo male with no significant past medical history. Patient had generalized malaise, weakness. patient has cold like symtpoms sore throat. This did not improve. Patient had 2 covid test which were negative. Principal Diagnosis anemia Discharge Exam Constitutional: WD/WN, vitals as above Eyes: PERRL, conjunctivae normal, anicteric sclerae ENMT: external ear and nose normal, oropharynx normal Neck: trachea midline, no thyromegaly Respiratory: normal respiratory effort, lungs clear to auscultation Cardiovascular: RRR, no murmur, no edema Gastrointestinal (Abdomen): normal bowel sounds, soft, nontender, no hepatosplenomegaly Musculoskeletal: no cyanosis or clubbing, extremities motor strength 5/5 Skin: no rashes, warm and dry Neurologic: PERRL, EOMI, accommodation nl, no face palsy, no dysarthria Psychiatric: A+Ox3, euthymic affect Lymphatic: no cervical or axillary lymphadenopathy Discharge Data Allergies Allergy/AdvReac Type Severity Reaction Status Date / Time No Known Allergies Allergy Unverified 01/01/22 15:51 Consultations 01/01/22 16:30 ED Decision to Admit Stat 01/01/22 16:46 Consult Wire Splicer Routine 01/02/22 08:38 Consult Hematology Routine 01/02/22 17:08 Consult Gastroenterology Routine Procedures Performed Operation Date: 01/04/22 16:30 Actual Procedures p EGD Biopsy Cytology - Eugene G. Case, DO s Colonoscopy - Eugene G. Case, DO Ordered Studies 01/01/22 16:30 CT abd pelvis wo con Stat CT chest diagnostic wo con Stat Hospital Course (1) Anemia: Patient abhishek be admitted to the ICU due to very low hemoglobin Ordered ct scan of chest and abd/pelvis to rule out any internal bleeding. This was negative. iron studies suggest iron def. anemia. consulted hematology who agrees this is mainly due to iron def. anemia. given history of diarrhea, concern over inflammatory bowel, will consult GI: treated with venofer 300mg X2 Upper GI: Multiple 2 to 5 mm sessile polyps with no stigmata of recent bleeding were found in the entire examined stomach. Biopsies were taken with a cold forceps for histology. The examined duodenum was normal. Biopsies for histology were taken with a cold forceps for evaluation of celiac disease. Impression: - Normal esophagus. - Multiple gastric polyps. Biopsied. - Normal examined duodenum. Biopsied. Recommendation: - [facility]. - Advance diet as tolerated. - Continue present medications. Colonoscopy: negative Mother has Crohn's disease. transfused 3 PRBC during hospital stay. will discharge on iron supplements recommend followup with hematology and S (2) Strep sore throat: will treat with amoxicillin. Total Time Total Time Spent Total Time Spent (In Minutes): 40 Discharge Plan Discharge Items Patient Disposition: Home - Self-Care Reason For Visit: ANEMIA Discharge Diagnosis: Anemia Activity: Resume your previous activity Non-emergency contact: Primary Care Provider Call non-emergency contact if: you have any medication questions Follow-up/Referrals: [facility] [Primary Care Provider] - Diet: Regular Addtl Attending Provider Instructions: Take first dose tonight of your antibiotics, take with food. Please continue taking iron supplements daily. Recommend followup with online affiliate marketing manager Dr. Matias. Recommend followup with [facility] within 1 week to recheck your hemoglobin levels. Pending Studies at Discharge: No Stand-Alone Forms: My [facility] [place], Smoking Cessation Medications and DC Order Prescriptions: New amoxicillin 500 mg Capsule 1,000 mg PO BID Qty: 14 0RF ferrous sulfate 325 mg (65 mg iron) Tablet,Delayed Release (Dr/Ec) 325 mg PO QAM Qty: 30 0RF Discharge Orders: Discharge Order (Routine); Ordered 01/04/22 Ordered By: Sonny Armando/Other Patient Handouts: Anemia Admission Data Admit Date/Time: 01/01/22 16:46 Attending Provider: Sonny Carlin Admit Provider: Sonny Carlin Primary Care Provider: [facility] Other Providers: Sonny Carlin ; Wm Gunn ; Tessa Matias ; Nikki Stafford ; Eugene Guerrero ; Ashli Ballesteros ; Tessy Saravia ; Lisa Albert ; Bruna Mcpherson ; Teja Atkinson ; Stevie Lenz ; Naty Mckenzie ; Farhat Stoll ; Juan Jose Franks ; Jannette Cannon ; Juan Junior ; Rigoberto Esparza ; Tito Gao ; Joceline Anna ; Carol Chavez ; Zee Castellanos ; Arminda García ; Chris Lockett ; Edward Michel ; Timbo Real ; Gage Lockwood ; Autumn Duffy Other Interventions: Discharge Summary Assessment (RN) Last Done: 01/04/22 18:12 Coding Level of Care Code D/C DAY MANAGEMENT >30 MINS Diagnoses Anemia D64.9 Strep sore throat J02.0
== END 2022-01-04 19:22 | disposition home or self-care (01) | DRG 812 ==
LOC: ED 14:23 → 1E 16:46 → 3E 01-02 21:05